=== PATIENT | male | born 1960 | race Caucasian/White ===

== ENCOUNTER → 2017-09-20 11:42 | Outpatient (CLI) | payer OTHER, SELFPAY ==
--- NOTE | 2017-09-20 | DI.US.S_ITS ---
PROCEDURE: US ABDOMEN COMPLETE INDICATIONS: Cirrhosis of liver TECHNIQUE: Real-time scanning was performed of the abdominal and retroperitoneal organs, with image documentation. COMPARISON: [facility], CT, ABDOMEN/PELVIS WITH CONTRAST, 09/21/2012, 9:33. [facility], US, ABDOMEN COMPLETE, 01/07/2015, 7:35. FINDINGS: Liver: Liver is diffusely increased in echogenicity. No focal hepatic abnormalities identified. Normal hepatic size. Gallbladder: Multiple gallstones present. No gallbladder wall thickening or pericholecystic fluid. Negative sonographic Staples sign. Biliary ducts: Intrahepatic bile ducts are non-dilated. Extrahepatic bile duct caliber measures 6.0 mm. Normal is 6-7 mm or less in diameter, or 10 mm or less post-cholecystectomy. Pancreas: Visualized portions of the pancreas are sonographically normal. Spleen: Spleen is normal in size and homogeneous in echotexture. Splenic calcifications redemonstrated. Kidneys: Kidneys are normal in size and echotexture. Right kidney measures 10.9 cm long; left kidney measures 12.7 cm long. No hydronephrosis or nephrolithiasis. No solid masses. Aorta: Visualized aorta is normal in caliber at less than 3 cm. Iliacs: Proximal common iliac arteries are normal in caliber at less than 2.5 cm. IVC: Intrahepatic inferior vena cava is patent. Miscellaneous: No free abdominal fluid. IMPRESSION: 1. Increased hepatic echogenicity noted likely related to fatty infiltration of the liver but other sources of hepatocellular disease cannot be excluded. Recommend clinical correlation. 2. Cholelithiasis. 3. Splenic calcifications redemonstrated. Dictated by: Roberto LINO Interpreted: Eamon Ram MD on 09/20/2017 at 14:04 Approved by: Eamon Ram M.D. on 09/20/2017 at 15:16
== END ==
PROVIDERS: Family Provider Internal Medicine; PCP Internal Medicine; Visit Provider Internal Medicine
DX: K74.69 Other cirrhosis of liver (principal); K80.20 Calculus of gallbladder without cholecystitis without obstruction
CPT/HCPCS: 76700

== ENCOUNTER 2018-02-02 12:51 | Day surgery (SDC) | payer OTHER, SELFPAY ==
[2018-02-02 14:00] VITALS: BP 151/84; PULSE 57; RESP 16; TEMP 36.7; O2SAT 95; BMI 36.3
[2018-02-02] MEDS: SODIUM CHLORIDE 0.9% 1,000 ML 42 ML IV (14:23)
--- NOTE | 2018-02-02 14:46 | PM.PREOP ---
Pre-operative Note Interval Note Pre-op Check: Yes History & Physical Reviewed by Physician and Yes Exam Performed Changes: No ASA Class (for procedural sedation): III
[2018-02-02 16:00] VITALS: BP 140/87; PULSE 57; RESP 16; TEMP 36.4; O2SAT 100
[2018-02-02 16:05] VITALS: BP 147/96; PULSE 58; RESP 18; O2SAT 98
[2018-02-02 16:10] VITALS: BP 159/93; PULSE 56; RESP 14; TEMP 36.6; O2SAT 97
--- NOTE | 2018-02-02 16:18 | PM.PREOP ---
Pre-operative Note Interval Note Pre-op Check: Yes History & Physical Reviewed by Physician, Yes Exam Performed and Yes History & Physical exam performed today by Physician Changes: No ASA Class (for procedural sedation): III
--- NOTE | 2018-02-02 16:19 | PM.OP.ENDO ---
Operative Date/Time/Diagnoses Date of procedure: 02/02/18 Time of procedure: 16:19 Pre-op diagnosis: See indication and findings Post-op diagnosis: same Procedure & Clinicians Study performed: EGD and colonoscopy Same procedure as scheduled: Yes Indications: Cirrhosis with need for screening for varices. In addition need for colorectal cancer screening. Procedure Notes Procedure in detail: Procedure in detail: After informed consent was obtained the patient was placed in left lateral decubitus position. The video upper scope was placed into the oropharynx and gently passed into the esophagus. The esophagus stomach and duodenum were carefully examined. On withdrawal, retroflexed view the GE junction was performed. The scope was removed. The patient tolerated the procedure well. The patient was then turned and the colonoscope was substituted. This was introduced into the rectum and slowly passed the cecum. Preparation was good. On slow withdrawal mucosa was carefully examined. The scope was removed. The patient tolerated the procedure well. Blood loss none Complications none Sedation mac per anesthesia Findings EGD 1. Normal esophagus 2. Possible mild portal gastropathy 3. Normal duodenal bulb and sweep Colonoscopy 1. Normal colonoscopy to cecum Patient will need repeat upper endoscopy in 1 year and follow-up colonoscopy in 10 years.
[2018-02-02 16:27] VITALS: BP 152/86; PULSE 53; RESP 16; TEMP 36.3; O2SAT 97
== END 2018-02-02 16:33 | disposition home or self-care (01) ==
PROVIDERS: Family Provider Internal Medicine; PCP Internal Medicine; Visit Provider Internal Medicine Gastroenterology
PROC: 0DJ08ZZ Inspection of Upper Intestinal Tract, Via Natural or Artificial Opening Endoscopic (ICD-10-PCS; CPT 43235; principal; 2018-02-02 14:30)
PROC: 0DJD8ZZ Inspection of Lower Intestinal Tract, Via Natural or Artificial Opening Endoscopic (ICD-10-PCS; CPT 45378; 2018-02-02 14:30)
DX: Z12.11 Encounter for screening for malignant neoplasm of colon (principal); K70.30 Alcoholic cirrhosis of liver without ascites; B19.20 Unspecified viral hepatitis C without hepatic coma; G47.33 Obstructive sleep apnea (adult) (pediatric); E66.9 Obesity, unspecified; F41.9 Anxiety disorder, unspecified; I10 Essential (primary) hypertension; F17.210 Nicotine dependence, cigarettes, uncomplicated
CPT/HCPCS: 43235; G0121; J2250; J2704; J3010

== ENCOUNTER 2018-02-25 07:02 | Emergency (ER) | payer OTHER, SELFPAY ==
[2018-02-25 07:13] VITALS: BP 137/89; PULSE 55; RESP 12; TEMP 36.4; O2SAT 100; BMI 35.4
[2018-02-25 07:52] LABS: Alanine Aminotransferase 65 IU/L (21-72); Albumin 4.9 g/dL (3.5-5.0); Albumin Globulin Ratio 1.6 (1.0-2.8); Alkaline Phosphatase 59 U/L (38-126); Aspartate Aminotransferase 56 IU/L (17-59); BUN Creatinine Ratio 22.9 (6-22); Bilirubin Total 0.8 mg/dL (0.2-1.3); Blood Urea Nitrogen 16 mg/dL (9-20); Calcium 9.8 mg/dL (8.4-10.2); Carbon Dioxide 26 mmol/L (22-32); Chloride 101 mmol/L (98-107); Estimated Glomerular Filt Rate > 60.0 mL/min (>60); Globulin 3.1 g/dL (1.7-4.1); Glucose 118 mg/dL (70-100); HEMOLYSIS 21 (0-50); Red Cell Distribution Width 12.4 % (11.6-14.8); Sodium 141 mmol/L (137-145)
--- NOTE | 2018-02-25 07:54 | DI.CT.S_ITS ---
PROCEDURE: CT HEAD/BRAIN WO CON INDICATIONS: dizzy TECHNIQUE: Noncontrast 4.5 mm thick angled axial sections acquired from the foramen magnum to the vertex, with coronal and sagittal reformats. For radiation dose reduction, the following was used: automated exposure control, adjustment of mA and/or kV according to patient size. COMPARISON: None. FINDINGS: Image quality: Excellent. CSF spaces: Basal cisterns are patent. No extra-axial fluid collections. The ventricles are symmetric in size and shape. Brain: No intracranial bleeds or masses. Probable anterior falx early calcification image 24 series 3 . There is also some apparent seen involving the posterior falx on the same slice. There is cerebral volume loss for age, with resultant ventricular and sulcal prominence. There are periventricular and deep white matter chronic small vessel ischemic changes. There is intracranial internal carotid artery atherosclerosis. Skull and face: Calvarium and visualized facial bones appear intact, without suspicious lesions. Sinuses: Visualized sinuses and mastoids are clear except for a small right maxillary mucous retention cyst or polyp. IMPRESSION: Overall, no definite acute intracranial abnormality. Subtle sub-5 mm hyperdense appearance along the anterior and posterior falx is probably early falx calcification although technically indeterminate in the absence of prior studies. If there is sufficient clinical suspicion, a repeat head CT in 6 hours could be performed. Dictated by: Andreas Puente M.D. on 02/25/2018 at 8:36 Approved by: Andreas Puente M.D. on 02/25/2018 at 8:42
[2018-02-25 08:05] LABS: Add Manual Diff / Slide Review NO; Basophils Percent Auto 0.8 % (0-2); Eosinophils Percent Auto 1.5 % (2-4); Hematocrit 48.3 % (41-53); Hemoglobin 17.3 g/dL (13.5-17.5); Lymphocytes Percent Auto 24.1 % (25-40); Mean Corpuscular HGB Conc 35.9 % (30-36); Mean Corpuscular Hemoglobin 33.9 PG (26-34); Mean Corpuscular Volume 94.6 fL (80-100); Monocytes Percent Auto 6.8 % (3-14); Neutrophils Absolute Auto 4700 /uL (3000-5900); Neutrophils Percent Auto 66.8 % (50-75); Platelet Count 188 X10^3/uL (150-400)
--- NOTE | 2018-02-25 08:07 | ED_ITS ---
HPI - Dizziness General Chief Complaint: Dizziness Stated Complaint: dizziness for 3 days, really bad now Time Seen by Provider: 02/25/18 07:27 Source: patient Mode of arrival: ambulatory Limitations: no limitations History of Present Illness HPI Narrative: Patient is a 57-year-old male who presents with dizziness. It has been ongoing for the last 3 days. He said he turned over in bed and immediately felt dizzy. He says he thought it was getting better yesterday however today it has persisted. He denies any nausea or vomiting. He denies blurry vision while sitting in the gurney now he does not feel bad. He mostly with turning his head in both directions and positional. He has no weakness numbness tingling or facial drooping. He is a diabetic and has not been on medications. He actually just saw his PCP last week. He said he was not taking his medications for the last few days he started taking them again and has not helped his dizziness. He denies chest pain shortness of breath heart palpitations MD complaint: dizziness Related Data Home Medications Medication Instructions Recorded Confirmed CHOLECALCIFEROL (VITAMIN D3) 400 iu PO Q DAY #0 09/23/11 CINNAMON BARK (Cinnamon) 500 mg PO Q DAY #0 09/23/11 CA PANTOTHENATE/FOLIC ACID/VIT 1 tab PO Q DAY #0 02/23/12 (MULTIVITAMIN) CPAP: CPAP/PAP Nasal Mask HS #0 02/23/12 Pyridoxine (PYRIDOXINE TIME 200 mg PO QDAY #0 02/23/12 RELEASE~) albuterol sulfate [Proventil HFA] 2 puff INH Q4HP #0 02/23/12 insulin glargine [Lantus U-100 20 unit SQ BID #10 ml 05/02/12 Insulin] OMEGA-3 FATTY ACIDS/FISH OIL (Fish 1,200 mg PO QDAY #0 05/09/12 Oil 1,200 MG Softgel) ondansetron HCl [Zofran] 8 mg PO TID PRN #0 05/09/12 trazodone 50 mg PO HS #0 05/09/12 CALCIUM CARBONATE (Calcium) 1 tab PO QDAY #0 05/17/12 lorazepam [Ativan] 0.5 mg PO HSP #0 07/22/12 Previous Rx's Medication Instructions Recorded salmeterol [Serevent Diskus] 1 inh INH Q12HP #3 02/23/12 insulin aspart U-100 [Novolog 0 - 15 unit SQ BLD #3 05/10/12 PenFill U-100 Insulin] atenolol 25 mg PO QDAY #30 11/07/12 pantoprazole [Protonix] 40 mg PO QDAYP #30 11/07/12 valsartan-hydrochlorothiazide 1 tab PO QDAY #30 11/07/12 [Diovan HCT] meclizine 12.5 mg PO TID PRN #20 tab 02/25/18 Allergies Allergy/AdvReac Type Severity Reaction Status Date / Time No Known Drug Allergies Allergy Verified 02/02/18 14:21 Review of Systems Review of Systems All systems reviewed & are unremarkable except as noted in HPI and below Constitutional Denies chills, Denies fever(s), Denies lethargy and Denies weakness ENT Ears, Nose, Mouth, and Throat: Reports dizziness Cardiovascular Denies syncope, Denies dyspnea and Denies dyspnea on exertion Respiratory Denies cough, Denies dyspnea, Denies dyspnea on exertion and Denies wheezing Gastrointestinal Gastrointestinal: Denies abdominal pain, Denies change in bowel habits, Denies diarrhea, Denies nausea and Denies vomiting Musculoskeletal Denies back pain, Denies muscle weakness, Denies numbness and Denies tingling Integumentary/Breasts Denies pruritus, Denies erythema, Denies rash and Denies wounds Neurologic Reports dizziness, Denies syncope, Denies numbness, Denies tingling and Denies weakness Allergic/Immunologic Denies wheezing [facility] Medical History Type 2 diabetes mellitus (Chronic) HTN (hypertension) (Chronic) Hyperlipidemia (Chronic) Anxiety disorder (Chronic) GERD (gastroesophageal reflux disease) (Chronic) Renal cell carcinoma (Inactive) DDD (degenerative disc disease), lumbosacral (Chronic) Obstructive sleep apnea of adult (Chronic) Excessive daytime sleepiness (Chronic) Primary insomnia (Chronic) Surgical History H/O partial nephrectomy (Inactive) History of lumbar spinal fusion (Chronic) Social History marital status: number of children: 3 household members: friend(s) lives independently: Yes occupational status: previously employed 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 RESPIRATORY: Breath sounds equal bilaterally, no wheezes rales or rhonchi. ABDOMEN: Soft, nontender. Normoactive bowel sounds all 4 quadrants. No guarding or rebound. EXTREMITIES: Normal range of motion, no clubbing or edema. Neurovascularly intact NEUROLOGICAL: Alert and oriented x4.Normal gait and speech. Cranial nerves II through XII grossly intact. Good [id number], good [id number], strength equal bilaterally, no dysarthria or aphasia, sensation in tact to soft touch bilaterally, no visual changes, no facial droop SKIN: Warm, dry, no laceration, no petechiae, no rashes or lesions. Scores NIH Stroke Scale Level of Conciousness: Alert, keenly responsive Ask month/age: Answers both questions correctly. Open/close eyes, close hand: Performs both tasks correctly Best gaze horizontal: Normal Visual barcenas: No visual loss Facial palsy: Normal symetrical movement Left arm drift: No drift for full 10 sec Right arm drift: No drift for full 10 sec Left leg drift: No drift for full 10 sec Right leg drift: No drift for full 10 sec Limb ataxia: Absent Sensory on face/arms/legs: Normal, no sensory loss Best language: No aphasia, normal Dysarthria: Normal Extinction or inattention: No abnormality Total NIH Stroke scale score: 0 Course Orders Ordered: ED Orders 02/25/18 07:31 Complete Blood Count AUTO DIFF Stat Comprehensive Metabolic Panel Stat 02/25/18 07:54 CT head/brain wo con Stat Discontinued Medications Sodium Chloride (Normal Saline 0.9%) 1,000 mls @ 1,000 mls/hr IV CONT ARIANA Last Infusion: 02/25/18 09:08 Dose: 0 mls/hr Admin: 02/25/18 08:10 Dose: 1,000 mls/hr Meclizine HCl (Antivert) 25 mg PO NOW ONE Stop: 02/25/18 07:35 Last Admin: 02/25/18 08:10 Dose: 25 mg Vital Signs - 8 hr 02/25/18 07:13 02/25/18 09:21 Temperature 97.5 F L Pulse Rate 55 L 52 L Respiratory Rate 12 15 Blood Pressure 137/89 154/84 H Pulse Oximetry 100 97 MDM - Dizziness Lab Data Attestation: I reviewed the patient's lab results. Result diagrams: 02/25/18 07:31 02/25/18 07:31 Lab Results 02/25/18 02/25/18 Range/Units 07:31 07:31 WBC 7.0 (4.5-11.0) X10^3/uL RBC 5.10 (4.5-5.9) X10^6/uL Hgb 17.3 (13.5-17.5) g/dL Hct 48.3 (41-53) % MCV 94.6 (80-100) fL MCH 33.9 (26-34) PG MCHC 35.9 (30-36) % RDW 12.4 (11.6-14.8) % Plt Count 188 (150-400) X10^3/uL Neut % (Auto) 66.8 (50-75) % Lymph % (Auto) 24.1 L (25-40) % Amador % (Auto) 6.8 (3-14) % Eos % (Auto) 1.5 L (2-4) % Baso % (Auto) 0.8 (0-2) % Neut # (Auto) 4700 (5631-0889) /uL Sodium 141 (137-145) mmol/L Potassium 4.0 (3.4-5.1) mmol/L Chloride 101 (98-107) mmol/L Carbon Dioxide 26 (22-32) mmol/L BUN 16 (9-20) mg/dL Creatinine 0.70 (0.66-1.25) mg/dL Estimated GFR > 60.0 (>60) mL/min BUN/Creatinine Ratio 22.9 H (6-22) Glucose 118 H (70-100) mg/dL Calcium 9.8 (8.4-10.2) mg/dL Total Bilirubin 0.8 (0.2-1.3) mg/dL AST 56 (17-59) IU/L ALT 65 (21-72) IU/L Alkaline Phosphatase 59 (38-126) U/L Total Protein 8.0 (6.3-8.2) g/dL Albumin 4.9 (3.5-5.0) g/dL Globulin 3.1 (1.7-4.1) g/dL Albumin/Globulin Ratio 1.6 (1.0-2.8) Point of Care Testing Glucose POC [address] scan - head: Radiologist's impression: PROCEDURE: CT HEAD/BRAIN WO CON INDICATIONS: dizzy TECHNIQUE: Noncontrast 4.5 mm thick angled axial sections acquired from the foramen magnum to the vertex, with coronal and sagittal reformats. For radiation dose reduction, the following was used: automated exposure control, adjustment of mA and/or kV according to patient size. COMPARISON: None. FINDINGS: Image quality: Excellent. CSF spaces: Basal cisterns are patent. No extra-axial fluid collections. The ventricles are symmetric in size and shape. Brain: No intracranial bleeds or masses. Probable anterior falx early calcification image 24 series 3 . There is also some apparent seen involving the posterior falx on the same slice. There is cerebral volume loss for age, with resultant ventricular and sulcal prominence. There are periventricular and deep white matter chronic small vessel ischemic changes. There is intracranial internal carotid artery atherosclerosis. Skull and face: Calvarium and visualized facial bones appear intact, without suspicious lesions. Sinuses: Visualized sinuses and mastoids are clear except for a small right maxillary mucous retention cyst or polyp. IMPRESSION: Overall, no definite acute intracranial abnormality. Subtle sub-5 mm hyperdense appearance along the anterior and posterior falx is probably early falx calcification although technically indeterminate in the absence of prior studies. If there is sufficient clinical suspicion, a repeat head CT in 6 hours could be performed. Dictated by: Andreas Puente M.D. on 02/25/2018 at 8:36 ECG Data Attestation: I personally reviewed and interpreted this ECG as follows: Prior ECG tracings: not available for review Interpretation: Normal sinus rhythm rate [address] changes Q-waves noted in lead 3 no priors to compare MDM Narrative Medical decision making narrative: The patient overall appears nontoxic he says he feels much better. He denies any headache. CT has questionable calcification versus hyperdense appearance. I think this is more calcification. Patient is completely asymptomatic and symptoms have been ongoing for the last 3 days. If he were to have acute bleeding it would show up on CT at this time. It has been more than 12 hr. Discharge Plan Departure Patient Disposition: Home Clinical Impression: Benign paroxysmal positional vertigo Discharge Date/Time: 02/25/18 09:22 Interventions: ED Discharge Assessment Last Done: 02/25/18 09:21 Instructions: DI for Benign Paroxysmal Positional Vertigo Activity Restrictions/Additional Instructions: *You have been diagnosed with benign paroxysmal positional vertigo *What to do: They should start improving. *Continue to take medications as directed Meclizine every 8 hr if needed for dizziness *Follow up with your primary care provider in 2-3 days *Return to ER if you should have worsening dizziness balance problems, vomiting any new, worsening or concerning symptoms Prescriptions: New meclizine 25 mg tablet 12.5 mg PO TID PRN (Reason: dizziness) Qty: 20 RF: 0 No Action CINNAMON BARK (Cinnamon) 500 mg PO Q DAY Qty: 0 RF: 0 CHOLECALCIFEROL (VITAMIN D3) 400 iu PO Q DAY Qty: 0 RF: 0 CA PANTOTHENATE/FOLIC ACID/VIT (MULTIVITAMIN) 1 tab PO Q DAY Qty: 0 RF: 0 CPAP: CPAP/PAP Nasal Mask HS Qty: 0 RF: 0 albuterol sulfate [Proventil HFA] 90 MCG/PUFF HFA aerosol inhaler 2 puff INH Q4HP Qty: 0 RF: 0 Pyridoxine (PYRIDOXINE TIME RELEASE~) 200 mg PO QDAY Qty: 0 RF: 0 salmeterol [Serevent Diskus] 50 MCG blister with device 1 inh INH Q12HP Qty: 3 RF: 1 insulin glargine [Lantus U-100 Insulin] 100 UNIT/1 ML solution 20 unit SQ BID Qty: 10 RF: 0 trazodone 50 MG tablet 50 mg PO HS Qty: 0 RF: 0 OMEGA-3 FATTY ACIDS/FISH OIL (Fish Oil 1,200 MG Softgel) 1,200 mg PO QDAY Qty: 0 RF: 0 ondansetron HCl [Zofran] 8 MG tablet 8 mg PO TID PRN Qty: 0 RF: 0 insulin aspart U-100 [Novolog PenFill U-100 Insulin] 100 UNIT/1 ML cartridge 0 - 15 unit SQ BLD Qty: 3 RF: 1 CALCIUM CARBONATE (Calcium) 1 tab PO QDAY Qty: 0 RF: 0 lorazepam [Ativan] 1 MG tablet 0.5 mg PO HSP Qty: 0 RF: 0 atenolol 25 MG tablet 25 mg PO QDAY Qty: 30 RF: 0 pantoprazole [Protonix] 40 MG tablet,delayed release (DR/EC) 40 mg PO QDAYP Qty: 30 RF: 0 valsartan-hydrochlorothiazide [Diovan HCT] 160 MG/25 MG tablet 1 tab PO QDAY Qty: 30 RF: 0 Referrals: Nahid Coyle MD [Primary Care Provider] -
[2018-02-25] MEDS: MECLIZINE HCL 12.5 MG TABLET 25 MG PO (08:10)
[2018-02-25] MEDS: SODIUM CHLORIDE 0.9% 1,000 ML 1000 ML IV (08:10)
--- NOTE | 2018-02-25 09:17 | PC.NURSE ---
Patient ambulated well around the ER, Only a slight C/O a little dizzy.
[2018-02-25 09:21] VITALS: BP 154/84; PULSE 52; RESP 15; O2SAT 97
--- NOTE | 2018-02-26 15:28 | PC.NURSE ---
call back, no answer.
== END 2018-02-25 09:22 | disposition home or self-care (01) ==
PROVIDERS: Emergency Provider Emergency Medicine; Family Provider Internal Medicine; PCP Internal Medicine
DX: H81.10 Benign paroxysmal vertigo, unspecified ear (principal)
CPT/HCPCS: 36591; 70450; 80053; 85025; 93005; 96360; 99283; 99285

== ENCOUNTER → 2020-04-18 15:11 | Outpatient (ROUT) | payer OTHER, SELFPAY ==
[2020-04-18 15:46] LABS: Aspartate Aminotransferase 96 IU/L (17-59); Blood Urea Nitrogen 16 mg/dL (9-20); Calcium 9.8 mg/dL (8.4-10.2); Carbon Dioxide 28 mmol/L (22-32); Chloride 99 mmol/L (98-107); Cholesterol 188 mg/dL (140-199); Estimated Glomerular Filt Rate > 60.0 mL/min (>60); Glucose 174 mg/dL (80-110); HDL Cholesterol 51 mg/dL (40-60); HEMOLYSIS < 15 (0-50); LDL Cholesterol Calculated 83 mg/dL (<100); Potassium 4.8 mmol/L (3.4-5.1); Sodium 138 mmol/L (137-145); Triglycerides 272 mg/dL (35-150)
== END ==
PROVIDERS: Family Provider Internal Medicine; PCP Internal Medicine; Visit Provider Internal Medicine
DX: I10 Essential (primary) hypertension (principal); E78.2 Mixed hyperlipidemia
CPT/HCPCS: 80048; 80061; 84450

== ENCOUNTER → 2020-11-20 09:08 | Outpatient (CLI) | payer OTHER, SELFPAY ==
--- NOTE | 2020-11-20 09:10 | DI.RAD.S_ITS ---
PROCEDURE: XR HIP W PEL IF DONE LT 2V INDICATIONS: LT HIP PAIN/POST FALL TECHNIQUE: AP pelvis with lateral view(s) of the left hip(s). COMPARISON: None. FINDINGS: Bones: Subtle irregularity at the left femoral neck with linear lucency. No dislocations. No avascular necrosis of the left femoral head. Mild bilateral hip joint space narrowing. Pelvic ring appears intact. No suspicious bony lesions. Pedicle screws right L5-S1. Soft tissues: The visualized bowel gas pattern is normal. No suspicious soft tissue calcifications. IMPRESSION: Possible nondisplaced left femoral neck fracture. This could be further evaluated with CT or MRI of the left hip. Dictated by: Vazquez Walls M.D. on 11/20/2020 at 9:45 Approved by: Vazquez Walls M.D. on 11/20/2020 at 9:51
== END ==
PROVIDERS: Family Provider Internal Medicine; PCP Internal Medicine; Referring Provider Internal Medicine; Visit Provider Internal Medicine
DX: S70.02XA Contusion of left hip, initial encounter (principal); W19.XXXA Unspecified fall, initial encounter
CPT/HCPCS: 73502

== ENCOUNTER → 2020-11-22 14:11 | Outpatient (CLI) | payer OTHER, SELFPAY ==
--- NOTE | 2020-11-22 14:13 | DI.CT.S_ITS ---
PROCEDURE: CT PEL WO CON INDICATIONS: Contusion of left hip, initial encounter TECHNIQUE: Noncontrast 3 mm axial sections acquired through the bony pelvis, with coronal and sagittal reformatting. COMPARISON: [facility], CT, ABDOMEN/PELVIS WITH CONTRAST, 09/21/2012, 9:33. [facility], CR, XR HIP W PEL IF DONE LT 2V, 11/20/2020, 9:09. FINDINGS: Image quality: Excellent. Bones: There is no definitively identified fracture or dislocation. Degenerative changes are present within the lower lumbar spine as well as posterior right davey fusion at L5-S1 Soft tissues: Visualized soft tissues within the lower abdomen and pelvis demonstrate colonic diverticulosis. Visualized portions of the bowel loops are nonobstructive. Bladder is distended. IMPRESSION: No definitive fracture or dislocation. If pain or concern persists, MRI for occult injury is highly recommended. Dictated by: Tawanna Carmichael M.D. on 11/22/2020 at 14:56 Approved by: Tawanna Carmichael M.D. on 11/22/2020 at 15:02
== END ==
PROVIDERS: Family Provider Internal Medicine; PCP Internal Medicine; Referring Provider Internal Medicine; Visit Provider Internal Medicine
DX: S70.02XA Contusion of left hip, initial encounter (principal); X58.XXXA Exposure to other specified factors, initial encounter
CPT/HCPCS: 72192

== ENCOUNTER 2020-11-30 13:25 | Emergency (ER) | payer OTHER, SELFPAY ==
[2020-11-30] VITALS (10 sets, daily range): BP systolic 161–198; BP diastolic 90–107; PULSE 63–86; RESP 15–22; O2SAT 95–98; BMI 36.9
--- NOTE | 2020-11-30 13:48 | DI.CT.S_ITS ---
PROCEDURE: CT HEAD/BRAIN WO CON INDICATIONS: Headache TECHNIQUE: Noncontrast 4.5 mm thick angled axial sections acquired from the foramen magnum to the vertex, with coronal and sagittal reformats. For radiation dose reduction, the following was used: automated exposure control, adjustment of mA and/or kV according to patient size. COMPARISON: [facility], CT, CT HEAD/BRAIN WO CON, 02/25/2018, 7:53. FINDINGS: Image quality: Excellent. CSF spaces: Basal cisterns are patent. No extra-axial fluid collections. The ventricles are symmetric in size and shape. Brain: No intracranial bleeds or masses. There is cerebral volume loss for age, with resultant ventricular and sulcal prominence. There are periventricular and deep white matter chronic small vessel ischemic changes. There is intracranial internal carotid artery atherosclerosis. Skull and face: Calvarium and visualized facial bones appear intact, without suspicious lesions. Sinuses: Visualized sinuses and mastoids are clear. IMPRESSION: No acute intracranial abnormality. Scattered tiny calcifications in the subarachnoid space overlying the convexities, new from 02/25/2018, consistent with neurocysticercosis. Dictated by: Rohan Lazar M.D. on 11/30/2020 at 14:04 Approved by: Rohan Lazar M.D. on 11/30/2020 at 14:06
[2020-11-30] MEDS: PROPARACAINE 0.5% OPHTH SOL 1 DROPS EYE-LEFT (14:04)
--- NOTE | 2020-11-30 15:06 | ED.HA ---
HPI - Headache <Roberto Tse PA-C - Last Filed: 12/01/20 12:36> General Chief Complaint: Headache Stated Complaint: Pressure in your head Time Seen by Provider: 11/30/20 13:48 Mode of arrival: Ambulatory Limitations: no limitations History of Present Illness HPI Narrative: Partha presents today with chief complaint of acute left-sided periorbital headache and eye pain that started abruptly earlier this afternoon while he was cutting some wood with a chop saw. He reports that he initially had left eye pain and pain with movement to the left of his left eye. He reported blurry vision initially but that has now improved. He reports that he still has significant discomfort here in the emergency department. He denies any significant dizziness, confusion, speech changes, numbness or tingling, neck pain, chest or any other acute concerns or complaints at this time. Related Data Home Medications Medication Instructions Recorded Confirmed CHOLECALCIFEROL (VITAMIN D3) 400 iu PO Q DAY #0 09/23/11 CINNAMON BARK (Cinnamon) 500 mg PO Q DAY #0 09/23/11 CA PANTOTHENATE/FOLIC ACID/VIT 1 tab PO Q DAY #0 02/23/12 (MULTIVITAMIN) CPAP: CPAP/PAP Nasal Mask HS #0 02/23/12 Pyridoxine (PYRIDOXINE TIME 200 mg PO QDAY #0 02/23/12 RELEASE~) albuterol sulfate 90 mcg/actuation 2 puff INH Q4HP #0 02/23/12 aerosol inhaler (Proventil HFA) insulin glargine 100 unit/mL 20 unit SQ BID #10 ml 05/02/12 subcutaneous solution (Lantus U-100 Insulin) OMEGA-3 FATTY ACIDS/FISH OIL (Fish 1,200 mg PO QDAY #0 05/09/12 Oil 1,200 MG Softgel) ondansetron HCl 8 mg tablet 8 mg PO TID PRN #0 05/09/12 (Zofran) trazodone 50 mg tablet 50 mg PO HS #0 05/09/12 CALCIUM CARBONATE (Calcium) 1 tab PO QDAY #0 05/17/12 lorazepam 1 mg tablet (Ativan) 0.5 mg PO HSP #0 07/22/12 Previous Rx's Medication Instructions Recorded salmeterol 50 mcg/dose blister 1 inh INH Q12HP #3 02/23/12 powder for inhalation (Serevent Diskus) insulin aspart U-100 100 unit/mL 0 - 15 unit SQ BLD #3 05/10/12 subcutaneous cartridge (Novolog PenFill U-100 Insulin aspart) atenolol 25 mg tablet 25 mg PO QDAY #30 11/07/12 pantoprazole 40 mg tablet,delayed 40 mg PO QDAYP #30 11/07/12 release (Protonix) valsartan 160 1 tab PO QDAY #30 11/07/12 mg-hydrochlorothiazide 25 mg tablet (Diovan HCT) meclizine 25 mg tablet 12.5 mg PO TID PRN #20 tab 02/25/18 Allergies Allergy/AdvReac Type Severity Reaction Status Date / Time No Known Drug Allergies Allergy Verified 11/30/20 13:58 Review of Systems <Roberto Tse PA-C - Last Filed: 12/01/20 12:36> Review of Systems Narrative: As per HPI Patient History <Roberto Tse PA-C - Last Filed: 12/01/20 12:36> Medical History (Updated 11/30/20 @ 16:13 by Roberto Tse PA-C) Anxiety disorder DDD (degenerative disc disease), lumbosacral Excessive daytime sleepiness GERD (gastroesophageal reflux disease) HTN (hypertension) Hyperlipidemia Obstructive sleep apnea of adult Primary insomnia Renal cell carcinoma Type 2 diabetes mellitus Surgical History H/O partial nephrectomy History of lumbar spinal fusion Social History marital status: number of children: 3 household members: friend(s) lives independently: Yes occupational status: previously employed 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 Smoking Status: Former smoker alcohol intake: former substance use type: does not use Smoking Status: Former smoker alcohol intake frequency: 3 or more drinks per day Substance Use Type: does not use Exam <Roberto Tse PA-C - Last Filed: 12/01/20 12:36> Narrative Exam Narrative: Exam Narrative: Const General: cooperative, healthy appearing, comfortable, no acute distress, well developed and well groomed Nutritional Appearance: average body habitus Orientation: alert and oriented x3 HENMT Head: normal to inspection and atraumatic Ears: hearing grossly normal bilaterally Nose: external nose normal and nares normal Eyes: Conjunctiva grossly normal bilaterally, clear discharge of left eye, no foreign bodies visualized upper lower eyelids. No periorbital erythema or swelling noted. PERRLA, EOMI, no fluorescein uptake noted on Wood's lamp evaluation. No significant soft tissue tenderness or bony tenderness. Face and sinus: normal facial exam Neck Neck: normal visual inspection and supple Resp Effort & Inspection: normal respiratory effort, able to speak in complete sentences, no audible wheezes, not labored, no nasal flaring and no respiratory distress Neuro General: alert, oriented x3, gait normal, tone normal and moves all extremities, cranial nerves 2-12 grossly intact, coordination Cognition: normal cognition Speech: speech normal Gait: normal gait Psych Appearance: grossly normal and well kempt Mental Status: mental status grossly normal Speech and Movement: speech and movement normal Mood: congruent mood Affect: normal affect Initial Vital Signs Initial Vital Signs: Vital Signs Pulse Rate 86 11/30/20 13:58 Respiratory Rate 18 11/30/20 13:58 Blood Pressure 184/106 H 11/30/20 13:58 Pulse Oximetry 96 11/30/20 13:58 <Samantha Cortez DO - Last Filed: 12/04/20 08:59> Initial Vital Signs Initial Vital Signs: Vital Signs Pulse Rate 86 11/30/20 13:58 Respiratory Rate 18 11/30/20 13:58 Blood Pressure 184/106 H 11/30/20 13:58 Pulse Oximetry 96 11/30/20 13:58 Course <Roberto Tse PA-C - Last Filed: 12/01/20 12:36> Orders Ordered: Discontinued Medications Fluorescein Sodium (Fluorescein 1 Mg Strip) 1 mg EYE-LEFT NOW ONE Stop: 11/30/20 15:26 Last Admin: 11/30/20 15:29 Dose: 1 mg Documented by: LALA Proparacaine HCl (Proparacaine 0.5% Ophth Jamila) 1 drops EYE-LEFT NOW ONE Stop: 11/30/20 14:00 Last Admin: 11/30/20 14:04 Dose: 1 drop Documented by: LALA Vital Signs Vital signs: Vital Signs - 8 hr 11/30/20 13:58 11/30/20 14:29 11/30/20 14:30 Pulse Rate 86 79 Respiratory Rate 18 20 Blood Pressure 184/106 H 173/107 H 169/107 H Pulse Oximetry 96 96 11/30/20 15:00 11/30/20 15:23 11/30/20 15:25 Pulse Rate 80 78 74 Respiratory Rate 22 17 17 Blood Pressure 161/95 H 184/101 H 173/105 H Pulse Oximetry 95 96 96 11/30/20 15:26 Pulse Rate 74 Respiratory Rate 18 Blood Pressure 180/104 H Pulse Oximetry 97 <Samantha Cortez DO - Last Filed: 12/04/20 08:59> Orders Ordered: Discontinued Medications Fluorescein Sodium (Fluorescein 1 Mg Strip) 1 mg EYE-LEFT NOW ONE Stop: 11/30/20 15:26 Last Admin: 11/30/20 15:29 Dose: 1 mg Documented by: LALA Proparacaine HCl (Proparacaine 0.5% Ophth Jamila) 1 drops EYE-LEFT NOW ONE Stop: 11/30/20 14:00 Last Admin: 11/30/20 14:04 Dose: 1 drop Documented by: LALA Vital Signs Vital signs: Vital Signs - 8 hr 11/30/20 13:58 11/30/20 14:29 11/30/20 14:30 Pulse Rate 86 79 Respiratory Rate 18 20 Blood Pressure 184/106 H 173/107 H 169/107 H Pulse Oximetry 96 96 11/30/20 15:00 11/30/20 15:23 11/30/20 15:25 Pulse Rate 80 78 74 Respiratory Rate 22 17 17 Blood Pressure 161/95 H 184/101 H 173/105 H Pulse Oximetry 95 96 96 11/30/20 15:26 Pulse Rate 74 Respiratory Rate 18 Blood Pressure 180/104 H Pulse Oximetry 97 MDM - Headache <Roberto Tse PA-C - Last Filed: 12/01/20 12:36> Lab Data Labs: Point of Care Testing Glucose POC 252 MDM Narrative Medical decision making narrative: Patient is well-appearing here in the emergency department at this time. He has mild left-sided periorbital headache. Eye exam is essentially normal. Given his history of cutting wood at the time of his pain, corneal abrasion or ocular foreign body was consider. Physical examination does not suggest that this time. Acute angle closure glaucoma was also considered. He has normal visual acuity and no significant physical exam symptoms to suggest this. Stroke was considered but he is neurologically intact at this time. He reports that he is under a lot of stress as his daughter is visiting on Wednesday. Given his ipsilateral lacrimation, cluster headache is considered. His symptoms have improved here in the emergency department. Strict ER return precautions were discussed with the patient. Patient verbalizes understanding and agrees to plan and has no further concerns at this time. Thank you A jhpov-[id number] system was used with the dictation of this note. Please disregard any spelling or grammatical errors. <Samantha Cortez, DO - Last Filed: 12/04/20 08:59> Lab Data Labs: Point of Care Testing Glucose POC 252 Discharge Plan Departure Patient Disposition: Home Clinical Impression: Acute headache Qualifiers: Headache type: unspecified Intractability: not intractable Qualified Code(s): R51.9 - Headache, unspecified Instructions: DI for Migraine, DI for Cluster Headache Activity Restrictions/Additional Instructions: It was very nice to meet you this afternoon. Please treat this as you would any other headache with acetaminophen or ibuprofen as needed. Excedrin migraine can also be used and is a good uesf-hss-jrcstif medication. Return precautions include acutely worsening headache, vision changes, eye pain, confusion, speech changes or any other acute concerns or complaints. Thank you Roberto Tse PA-C Prescriptions: No Action CINNAMON BARK (Cinnamon) 500 mg PO Q DAY Qty: 0 RF: 0 CHOLECALCIFEROL (VITAMIN D3) 400 iu PO Q DAY Qty: 0 RF: 0 CA PANTOTHENATE/FOLIC ACID/VIT (MULTIVITAMIN) 1 tab PO Q DAY Qty: 0 RF: 0 CPAP: CPAP/PAP Nasal Mask HS Qty: 0 RF: 0 albuterol sulfate [Proventil HFA] 90 MCG/PUFF HFA aerosol inhaler 2 puff INH Q4HP Qty: 0 RF: 0 Pyridoxine (PYRIDOXINE TIME RELEASE~) 200 mg PO QDAY Qty: 0 RF: 0 salmeterol [Serevent Diskus] 50 MCG blister with device 1 inh INH Q12HP Qty: 3 RF: 1 insulin glargine [Lantus U-100 Insulin] 100 UNIT/1 ML solution 20 unit SQ BID Qty: 10 RF: 0 trazodone 50 MG tablet 50 mg PO HS Qty: 0 RF: 0 OMEGA-3 FATTY ACIDS/FISH OIL (Fish Oil 1,200 MG Softgel) 1,200 mg PO QDAY Qty: 0 RF: 0 ondansetron HCl [Zofran] 8 MG tablet 8 mg PO TID PRN Qty: 0 RF: 0 insulin aspart U-100 [Novolog PenFill U-100 Insulin] 100 UNIT/1 ML cartridge 0 - 15 unit SQ BLD Qty: 3 RF: 1 CALCIUM CARBONATE (Calcium) 1 tab PO QDAY Qty: 0 RF: 0 lorazepam [Ativan] 1 MG tablet 0.5 mg PO HSP Qty: 0 RF: 0 atenolol 25 MG tablet 25 mg PO QDAY Qty: 30 RF: 0 pantoprazole [Protonix] 40 MG tablet,delayed release (DR/EC) 40 mg PO QDAYP Qty: 30 RF: 0 valsartan-hydrochlorothiazide [Diovan HCT] 160 MG/25 MG tablet 1 tab PO QDAY Qty: 30 RF: 0 meclizine 25 mg tablet 12.5 mg PO TID PRN (Reason: dizziness) Qty: 20 RF: 0 Referrals: Nahid Coyle MD [Primary Care Provider] - <Samantha Cortez DO - Last Filed: 12/04/20 08:59> Cosign ED Attending Cosamberature Attestation: I was immediately available in the department for consultation. Documentation has been reviewed. I do not see IOPs documented but notes acute angle closure glaucoma considered.
[2020-11-30] MEDS: FLUORESCEIN 1 MG STRIP EYE-LEFT (15:29)
== END 2020-11-30 16:18 | disposition home or self-care (01) ==
PROVIDERS: Emergency Provider Physician Assistant; Family Provider Internal Medicine; PCP Internal Medicine
DX: R51.9 Headache, unspecified (principal); H53.8 Other visual disturbances
CPT/HCPCS: 70450; 82962; 99284

== ENCOUNTER 2021-02-04 11:28 | Emergency (ER) | payer OTHER, SELFPAY ==
[2021-02-04] VITALS (12 sets, daily range): BP systolic 159–192; BP diastolic 89–98; PULSE 66–84; RESP 19; TEMP 36.6; O2SAT 94–97; BMI 36.9
--- NOTE | 2021-02-04 16:03 | DI.CT.S_ITS ---
PROCEDURE: CT HEAD/BRAIN WO CON INDICATIONS: Vision loss TECHNIQUE: Noncontrast 4.5 mm thick angled axial sections acquired from the foramen magnum to the vertex, with coronal and sagittal reformats. For radiation dose reduction, the following was used: automated exposure control, adjustment of mA and/or kV according to patient size. COMPARISON: [facility], CT, CT ANGIO HEAD AND NECK, 02/04/2021, 16:38. [facility], CT, CT HEAD/BRAIN WO CON, 02/25/2018, 7:53. [facility], CT, CT HEAD/BRAIN WO CON, 11/30/2020, 13:52. FINDINGS: Image quality: Excellent. CSF spaces: Basal cisterns are patent. No extra-axial fluid collections. The ventricles are symmetric in size and shape. Brain: Size of parenchymal calcification can be seen, which are largely seen along the srivastava-white junction within the left cerebral hemisphere. No intracranial bleeds or masses. There is cerebral volume loss for age, with resultant ventricular and sulcal prominence. There are periventricular and deep white matter chronic small vessel ischemic changes. There is intracranial internal carotid artery atherosclerosis. Skull and face: Calvarium and visualized facial bones appear intact, without suspicious lesions. Sinuses: Visualized sinuses and mastoids are clear. IMPRESSION: No acute intracranial hemorrhage is seen. No acute intracranial process is seen. Stable foci of parenchymal calcification can be seen. These are nonspecific, although please consider prior infection, including there is focal neurocysticercosis. Dictated by: Ethan Bey M.D. on 02/04/2021 at 16:11 Approved by: Ethan Bey M.D. on 02/04/2021 at 16:13
--- NOTE | 2021-02-04 16:04 | DI.CT.S_ITS ---
PROCEDURE: CT ANGIO HEAD AND NECK INDICATIONS: vision loss TECHNIQUE: Noncontrast images were performed earlier in the day and not repeated. After the administration of intravenous contrast, 1 mm thick sections acquired from the aortic arch through the [place] of [place]. Post-contrast 4.5 mm thick sections then re-acquired from the foramen magnum to the vertex. 3-dimensional ntcjgzx-eiqhrijaf-mgxnrfewog (MIP) and/or volume rendering reformats were acquired of the central intracranial vasculature and neck separately. COMPARISON: [facility], CT, CT HEAD/BRAIN WO CON, 02/25/2018, 7:53. [facility], CT, CT HEAD/BRAIN WO CON, 02/04/2021, 16:38. [facility], CT, CT HEAD/BRAIN WO CON, 11/30/2020, 13:52. FINDINGS: Image quality: Excellent. BRAIN: CSF spaces: Ventricles are normal in size and shape. Basal cisterns are patent. No extra-axial fluid collections. Brain: No midline shift. No intracranial bleeds or masses. Ramsey-white matter interface appears intact. Skull and face: Calvarium and facial bones appear intact, without suspicious lesions. Orbits appear normal. Sinuses: Sinuses and mastoids are clear. HEAD CT ANGIOGRAPHY: Anterior circulation: Intracranial internal carotid arteries are normal in size and flow. There is a diminutive right A1 segment, with a corresponding robust left A1 segment. This is considered to be a normal developmental variant of the [place] of [place], of typically no clinical consequence. The flow within the paired anterior cerebral arteries is otherwise normal and symmetric. The flow within the middle cerebral arteries is normal and symmetric. The anterior communicating artery is seen. No aneurysms are seen. Posterior circulation: Visualized portions of the vertebral arteries demonstrate normal caliber, and join to form a normal appearing basilar artery. There is a prominent right posterior communicating artery seen, with an accompanying diminutive right P1 segment. This is attributed to a type origin of the right posterior cerebral artery, which is considered to be a normal developmental variant of typically no clinical consequence. Flow within the posterior cerebral arteries is normal and symmetric. No aneurysms are seen. NECK CT ANGIOGRAPHY: Carotid system: The great vessels demonstrate a conventional anatomy as they arise from the aortic arch. The origins of the common carotid arteries appear patent. The common carotid arteries demonstrate normal caliber and courses. The bifurcation regions demonstrate atherosclerotic irregularity and calcification. There is approximately 70% narrowing seen involving the left proximal internal carotid artery. Approximately 20% narrowing can be seen involving the right proximal internal carotid artery. The more distal internal carotid arteries demonstrate normal course and caliber. Posterior circulation: The origins of the vertebral arteries both appear widely patent. Incidental note is made of a direct origin of the left vertebral artery from the aortic arch. The more superior extracranial portions of both vertebral arteries also demonstrate normal courses and calibers. They join to form a normal appearing basilar artery. Soft tissues: Visualized neck soft tissues demonstrate no suspicious abnormalities. Bones: No suspicious bony lesions. Visualized cervical spine appears normally aligned. Moderate cervical spine degenerative changes are seen. IMPRESSION: No significant intracranial arterial abnormality is seen. There is approximately 70% narrowing seen involving the left proximal internal carotid artery and approximately 20% narrowing involving the right proximal internal carotid artery. No abnormal enhancement is seen. Incidental note is made of: Direct origin of the left vertebral artery from the aortic arch. [id number] developmental anomalies. Moderate cervical spine degenerative change Any quantitative measurements of stenosis were performed using NASCET criteria. Dictated by: Ethan Bey M.D. on 02/04/2021 at 16:07 Approved by: Ethan Bey M.D. on 02/04/2021 at 16:11
[2021-02-04 16:12] LABS: Add Manual Diff / Slide Review NO; Basophils Absolute Auto 100 /uL (0-100); Basophils Percent Auto 0.8 % (0-2); Eosinophils Absolute Auto 100 /uL (0-450); Eosinophils Percent Auto 2.1 % (2-4); Hematocrit 42.9 % (41-53); Hemoglobin 14.6 g/dL (13.5-17.5); Lymphocytes Absolute Auto 2000 /uL (1100-4500); Lymphocytes Percent Auto 28.4 % (25-40); Mean Corpuscular Hemoglobin 30.1 PG (26-34); Mean Corpuscular Volume 88.6 fL (80-100); Monocytes Absolute Auto 500 /uL (0-900); Neutrophils Absolute Auto 4400 /uL (1500-7000); Neutrophils Percent Auto 61.7 % (50-75); Platelet Count 222 X10^3/uL (150-400); Red Blood Cell Count 4.85 X10^6/uL (4.5-5.9); Red Cell Distribution Width 13.5 % (11.6-14.8)
[2021-02-04 16:14] LABS: INR 1.1 (0.9-1.3); Prothrombin Time 12.7 SECONDS (10.1-12.7)
--- NOTE | 2021-02-04 16:14 | DI.RAD.S_ITS ---
PROCEDURE: XR CHEST 2V INDICATIONS: vision loss TECHNIQUE: 2 views of the chest were acquired. COMPARISON: [facility], CT, CT HEAD/BRAIN WO CON, 02/04/2021, 16:38. [facility], CT, CT ANGIO HEAD AND NECK, 02/04/2021, 16:38. [facility], CR, CHEST 1 VIEW, 05/22/2012, 8:21. FINDINGS: Surgical changes and devices: None. Lungs and pleura: An incomplete inspiratory result is noted, causing a crowded appearance to the lung markings. No focal infiltrates are seen. No pneumothorax or significant pleural effusions are seen. Mediastinum: Mediastinal contours are normal. Heart size is normal. Bones and chest wall: No suspicious bony abnormalities. Age-appropriate bony degenerative changes are seen. Soft tissues appear unremarkable. IMPRESSION: No acute cardiopulmonary process is seen. Dictated by: Ethan Bey M.D. on 02/04/2021 at 16:02 Approved by: Ethan Bey M.D. on 02/04/2021 at 16:03
[2021-02-04 16:16] LABS: PTT Partial Thromboplastin Tim 37 SECONDS (26.4-36.2)
[2021-02-04 16:23] LABS: Alanine Aminotransferase 108 IU/L (<50); Albumin 4.8 g/dL (3.5-5.0); Albumin Globulin Ratio 1.4 (1.0-2.8); Alkaline Phosphatase 78 U/L (38-126); Aspartate Aminotransferase 129 IU/L (17-59); BUN Creatinine Ratio 22.7 (6-22); Bilirubin Total 0.6 mg/dL (0.2-1.3); Blood Urea Nitrogen 17 mg/dL (9-20); Calcium 9.4 mg/dL (8.4-10.2); Carbon Dioxide 25 mmol/L (22-32); Chloride 101 mmol/L (98-107); Estimated Glomerular Filt Rate > 60.0 mL/min (>60); Globulin 3.4 g/dL (1.7-4.1); Glucose 182 mg/dL (80-110); HEMOLYSIS 16 (0-50); Potassium 3.9 mmol/L (3.4-5.1); Sodium 137 mmol/L (137-145); Total Protein 8.2 g/dL (6.3-8.2)
[2021-02-04 16:47] LABS: C-Reactive Protein Quant < 0.5 mg/dL (<1.0)
[2021-02-04 16:54] LABS: Erythrocyte Sedimentation Rate 16 MM/HR (0-15)
[2021-02-04] MEDS: MORPHINE 4 MG/ML INJ IV (17:43)
--- NOTE | 2021-02-04 21:07 | ED.NEUROSD ---
HPI - Neuro Symptoms/Deficit <Dede Heredia PA-C - Last Filed: 02/06/21 13:07> General Chief Complaint: Neuro Symptoms/Deficit Stated Complaint: follow up tests after stroke Time Seen by Provider: 02/04/21 15:19 Source: patient Mode of arrival: Family Vehicle Limitations: no limitations History of Present Illness HPI Narrative: 60-year-old male with past medical history obstructive sleep apnea, diabetes, hyperlipidemia, renal cell carcinoma presents to the ED a visual field defect in his left eye. Patient states that he started noticing that the right upper quadrant of his vision in his left eye started appearing blurry, and later just being black week prior to arrival. Patient states that he saw an drawer hardware worker, who sent him to an knitted goods shaper for further evaluation. Patient was seen by knitted goods shaper Dr. 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 talked with Dr. Lucas over the phone, who confirmed the CRAO in the left eye, with [address] Lucas directed the patient to the ED for a stroke workup. Patient was started on aspirin. In the ED, patient states that he cannot see the right upper quadrant field from his left eye. Patient denies any eye pain, discomfort, headache. Patient denies any focal deficits. Patient denies numbness, tingling, weakness. Patient endorses normal gait. Patient denies fever, chills, chest pain, shortness of breath, cough, nausea, vomiting, abdominal pain, lightheadedness, dizziness, syncope. On Anticoagulants: Yes Related Data Home Medications Medication Instructions Recorded Confirmed CHOLECALCIFEROL (VITAMIN D3) 400 iu PO Q DAY #0 09/23/11 CINNAMON BARK (Cinnamon) 500 mg PO Q DAY #0 09/23/11 CA PANTOTHENATE/FOLIC ACID/VIT 1 tab PO Q DAY #0 02/23/12 (MULTIVITAMIN) CPAP: CPAP/PAP Nasal Mask HS #0 02/23/12 Pyridoxine (PYRIDOXINE TIME 200 mg PO QDAY #0 02/23/12 RELEASE~) albuterol sulfate 90 mcg/actuation 2 puff INH Q4HP #0 02/23/12 aerosol inhaler (Proventil HFA) insulin glargine 100 unit/mL 20 unit SQ BID #10 ml 05/02/12 subcutaneous solution (Lantus U-100 Insulin) OMEGA-3 FATTY ACIDS/FISH OIL (Fish 1,200 mg PO QDAY #0 05/09/12 Oil 1,200 MG Softgel) ondansetron HCl 8 mg tablet 8 mg PO TID PRN #0 05/09/12 (Zofran) trazodone 50 mg tablet 50 mg PO HS #0 05/09/12 CALCIUM CARBONATE (Calcium) 1 tab PO QDAY #0 05/17/12 lorazepam 1 mg tablet (Ativan) 0.5 mg PO HSP #0 07/22/12 Previous Rx's Medication Instructions Recorded salmeterol 50 mcg/dose blister 1 inh INH Q12HP #3 02/23/12 powder for inhalation (Serevent Diskus) insulin aspart U-100 100 unit/mL 0 - 15 unit SQ BLD #3 05/10/12 subcutaneous cartridge (Novolog PenFill U-100 Insulin aspart) atenolol 25 mg tablet 25 mg PO QDAY #30 11/07/12 pantoprazole 40 mg tablet,delayed 40 mg PO QDAYP #30 11/07/12 release (Protonix) valsartan 160 1 tab PO QDAY #30 11/07/12 mg-hydrochlorothiazide 25 mg tablet (Diovan HCT) meclizine 25 mg tablet 12.5 mg PO TID PRN #20 tab 02/25/18 Allergies Allergy/AdvReac Type Severity Reaction Status Date / Time No Known Drug Allergies Allergy Verified 02/04/21 11:45 Review of Systems <Dede Heredia PA-C - Last Filed: 02/06/21 13:07> Constitutional Constitutional: Denies chills, Denies fatigue, Denies fever(s), Denies frequent falls, Denies lethargy and Denies weakness Eyes Eyes: Denies change in vision, Denies eye discharge, Denies irritation and Denies loss of vision Comments: Left eye with right upper quadrant visual field loss ENT Ears, Nose, Mouth, and Throat: Denies change in voice, Denies dizziness, Denies neck pain, Denies sore throat and Denies throat swelling Cardiovascular Cardiovascular: Denies chest pain, Denies irregular heart rhythm, Denies lightheadedness, Denies palpitations, Denies dyspnea, Denies dyspnea on exertion and Denies orthopnea Respiratory Respiratory: Denies cough, Denies dyspnea, Denies dyspnea on exertion and Denies wheezing Gastrointestinal Gastrointestinal: Denies abdominal pain, Denies change in bowel habits, Denies diarrhea, Denies nausea and Denies vomiting Musculoskeletal Musculoskeletal: Denies neck pain and Denies numbness Integumentary/Breasts Skin/Breast: Denies pruritus, Denies erythema, Denies rash and Denies wounds Neurologic Neurologic: Denies behavioral changes, Denies confusion, Denies dizziness, Denies frequent falls, Denies loss of vision, Denies numbness and Denies weakness Psychiatric Psychiatric: Denies anxiety, Denies behavioral changes, Denies confusion, Denies depression, Denies homicidal ideation and Denies suicidal ideation Endocrine Endocrine: Denies fatigue, Denies flushing and Denies palpitations Hematologic/Lymphatic Hematologic/Lymphatic: Denies easy bruising On Anticoagulants: Yes Allergic/Immunologic Allergic/Immunologic: Denies urticaria, Denies throat swelling and Denies wheezing Patient History <Dede Heredia PA-C - Last Filed: 02/06/21 13:07> Medical History Anxiety disorder DDD (degenerative disc disease), lumbosacral Excessive daytime sleepiness GERD (gastroesophageal reflux disease) HTN (hypertension) Hyperlipidemia Obstructive sleep apnea of adult Primary insomnia Renal cell carcinoma Type 2 diabetes mellitus Surgical History H/O partial nephrectomy History of lumbar spinal fusion Social History marital status: number of children: 3 household members: friend(s) lives independently: Yes occupational status: previously employed 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 Smoking Status: Former smoker alcohol intake: former substance use type: does not use Smoking Status: Former smoker alcohol intake frequency: 3 or more drinks per day Substance Use Type: does not use Exam <Dede Heredia PA-C - Last Filed: 02/06/21 13:07> Initial Vital Signs Initial Vital Signs: Vital Signs Temperature 97.8 F 02/04/21 11:46 Pulse Rate 84 02/04/21 11:46 Respiratory Rate 19 02/04/21 11:46 Blood Pressure 182/90 H 02/04/21 11:46 Pulse Oximetry 97 02/04/21 11:46 Const General: cooperative HENMT Head: normocephalic and atraumatic Ears: external ears normal and TM's normal bilaterally Nose: external nose normal and No nasal discharge Face and sinus: sinuses nontender, face symmetric, no sinus tenderness and No dry mucous membranes Mouth: oral mucosae normal and moist mucous membranes Teeth and gingiva: dentition normal Throat: tonsils normal and uvula midline Eyes General: appearance normal, both eyes and all related structures Visual Villarreal: abnormal by confrontation upper inner visual field cut left Alignment and Position: alignment normal Periorbital: periorbital findings normal Eyelids: eyelids normal Conjunctivae: conjunctivae normal Sclera: sclerae normal Pupils: PERRL EOM: EOM intact bilaterally Neck Neck: normal visual inspection, trachea midline, No lymphadenopathy, No midline deformity and No JVD Lymphatic: No lymphedema Chest Chest: normal inspection of the chest Resp Effort & Inspection: normal respiratory effort, able to speak in complete sentences, no respiratory distress and no use of accessory muscles Auscultation: clear to auscultation bilaterally, no rales, no rhonchi and no wheezes Cardio Rate: regular rate Rhythm: regular rhythm Heart Sounds: no click, no gallops, no murmurs and no rubs Pulses: normal peripheral pulses GI Inspection: non-distended Palpation: soft, no hepatosplenomegaly, No guarding, No pulsatile mass and No tender Auscultation: normal bowel sounds Back/Spine/Pelvis Back: No CVA tenderness Cervical Spine: cervical ROM normal and No pain with cervical ROM Thoracic/Lumbar Spine: thoracic and lumbar spine normal to inspection Skin General: no rashes or lesions noted, No jaundice and No petechiae Neuro General: patient alert, patient oriented x3, gait normal and no focal motor deficits Speech: speech normal Other: PERRLA. CN 1 through 12 intact. Gait normal. Negative pronator drift, negative [id number], negative rapid alternating movements, negative [id number]. Strength and sensation intact. Normal range of motion. Patient is neurologically intact. Extrem General: full ROM, no clubbing, cyanosis or edema, no pedal edema and no calf tenderness Psych Appearance: well kempt Mental Status: mental status grossly normal Attitude: cooperative Thought Content: normal and suicidality Judgment: judgment good <Laila Herbert, - Last Filed: 02/07/21 00:38> Initial Vital Signs Initial Vital Signs: Vital Signs Temperature 97.8 F 02/04/21 11:46 Pulse Rate 84 02/04/21 11:46 Respiratory Rate 19 02/04/21 11:46 Blood Pressure 182/90 H 02/04/21 11:46 Pulse Oximetry 97 02/04/21 11:46 Course <Dede Heredia PA-C - Last Filed: 02/06/21 13:07> Course Course Narrative: Labs within normal limits. Labs not significant for temporal arteritis. Physical exam consistent with CRAO. left eye with visual field defect in the right upper quadrant. Extraocular movements normal. Patient Neurologically intact. Will discharge home with cardiology f/u as soon as possible to evaluate for cardiac emboli. Discussed risk of stroke, stroke symptoms to watch out for, ED return precautions. Patient verbalized understanding, will follow up with assistant professor of radiology yadi. Orders Ordered: Discontinued Medications Morphine Sulfate (Morphine 4 Mg/Ml Inj) 4 mg IV NOW ONE Stop: 02/04/21 17:33 Last Admin: 02/04/21 17:43 Dose: 4 mg Documented by: ESOBDULIO Vital Signs Vital signs: Vital Signs - 8 hr 02/04/21 15:52 02/04/21 16:00 02/04/21 16:30 Pulse Rate 78 77 83 Blood Pressure 159/89 H 164/92 H Pulse Oximetry 96 95 95 02/04/21 17:00 02/04/21 17:30 02/04/21 17:58 Pulse Rate 68 69 82 Blood Pressure Pulse Oximetry 94 94 95 02/04/21 18:00 02/04/21 18:01 02/04/21 18:02 Pulse Rate 80 78 72 Blood Pressure Pulse Oximetry 95 95 95 02/04/21 18:03 02/04/21 18:30 Pulse Rate 71 66 Blood Pressure 192/98 H Pulse Oximetry 95 95 <Laila Herbert DO - Last Filed: 02/07/21 00:38> Orders Ordered: Discontinued Medications Morphine Sulfate (Morphine 4 Mg/Ml Inj) 4 mg IV NOW ONE Stop: 02/04/21 17:33 Last Admin: 02/04/21 17:43 Dose: 4 mg Documented by: ESNODGRASS Vital Signs Vital signs: Vital Signs - 8 hr 02/04/21 15:52 02/04/21 16:00 02/04/21 16:30 Pulse Rate 78 77 83 Blood Pressure 159/89 H 164/92 H Pulse Oximetry 96 95 95 02/04/21 17:00 02/04/21 17:30 02/04/21 17:58 Pulse Rate 68 69 82 Blood Pressure Pulse Oximetry 94 94 95 02/04/21 18:00 02/04/21 18:01 02/04/21 18:02 Pulse Rate 80 78 72 Blood Pressure Pulse Oximetry 95 95 95 02/04/21 18:03 02/04/21 18:30 Pulse Rate 71 66 Blood Pressure 192/98 H Pulse Oximetry 95 95 MDM - Neuro Symptoms/Deficit <Dede Heredia PA-C - Last Filed: 02/06/21 13:07> Lab Data Result diagrams: 02/04/21 15:30 02/04/21 15:30 Labs: Lab Results 02/04/21 02/04/21 02/04/21 Range/Units 15:30 15:30 15:30 WBC 7.0 (4.5-11.0) X10^3/uL RBC 4.85 (4.5-5.9) X10^6/uL Hgb 14.6 (13.5-17.5) g/dL Hct 42.9 (41-53) % MCV 88.6 (80-100) fL MCH 30.1 (26-34) PG MCHC 34.0 (30-36) % RDW 13.5 (11.6-14.8) % Plt Count 222 (150-400) X10^3/uL Neut % (Auto) 61.7 (50-75) % Lymph % (Auto) 28.4 (25-40) % [place] % (Auto) 7.0 (3-14) % Eos % (Auto) 2.1 (2-4) % Baso % (Auto) 0.8 (0-2) % Neut # (Auto) 4400 (5566-3809) /uL Lymph # (Auto) 2000 (8643-1305) /uL [place] # (Auto) 500 (0-900) /uL Eos # (Auto) 100 (0-450) /uL Baso # (Auto) 100 (0-100) /uL ESR (0-15) MM/HR PT 12.7 (10.1-12.7) SECONDS INR 1.1 (0.9-1.3) APTT 37 H (26.4-36.2) SECONDS Sodium 137 (137-145) mmol/L Potassium 3.9 (3.4-5.1) mmol/L Chloride 101 (98-107) mmol/L Carbon Dioxide 25 (22-32) mmol/L BUN 17 (9-20) mg/dL Creatinine 0.75 (0.66-1.25) mg/dL Estimated GFR > 60.0 (>60) mL/min BUN/Creatinine Ratio 22.7 H (6-22) Glucose 182 H (80-110) mg/dL Calcium 9.4 (8.4-10.2) mg/dL Total Bilirubin 0.6 (0.2-1.3) mg/dL AST 129 H (17-59) IU/L ALT 108 H (<50) IU/L Alkaline Phosphatase 78 (38-126) U/L C-Reactive Protein (<1.0) mg/dL Total Protein 8.2 (6.3-8.2) g/dL Albumin 4.8 (3.5-5.0) g/dL Globulin 3.4 (1.7-4.1) g/dL Albumin/Globulin Ratio 1.4 (1.0-2.8) 02/04/21 02/04/21 Range/Units 15:30 15:30 WBC (4.5-11.0) X10^3/uL RBC (4.5-5.9) X10^6/uL Hgb (13.5-17.5) g/dL Hct (41-53) % MCV (80-100) fL MCH (26-34) PG MCHC (30-36) % RDW (11.6-14.8) % Plt Count (150-400) X10^3/uL Neut % (Auto) (50-75) % Lymph % (Auto) (25-40) % [place] % (Auto) (3-14) % Eos % (Auto) (2-4) % Baso % (Auto) (0-2) % Neut # (Auto) (6097-9235) /uL Lymph # (Auto) (8942-2283) /uL [place] # (Auto) (0-900) /uL Eos # (Auto) (0-450) /uL Baso # (Auto) (0-100) /uL ESR 16 H (0-15) MM/HR PT (10.1-12.7) SECONDS INR (0.9-1.3) APTT (26.4-36.2) SECONDS Sodium (137-145) mmol/L Potassium (3.4-5.1) mmol/L Chloride (98-107) mmol/L Carbon Dioxide (22-32) mmol/L BUN (9-20) mg/dL Creatinine (0.66-1.25) mg/dL Estimated GFR (>60) mL/min BUN/Creatinine Ratio (6-22) Glucose (80-110) mg/dL Calcium (8.4-10.2) mg/dL Total Bilirubin (0.2-1.3) mg/dL AST (17-59) IU/L ALT (<50) IU/L Alkaline Phosphatase (38-126) U/L C-Reactive Protein < 0.5 (<1.0) mg/dL Total Protein (6.3-8.2) g/dL Albumin (3.5-5.0) g/dL Globulin (1.7-4.1) g/dL Albumin/Globulin Ratio (1.0-2.8) Imaging Data Chest x-ray: Radiologist's Impression: PROCEDURE:? XR CHEST 2V ? INDICATIONS:? vision loss ? TECHNIQUE:? 2 views of the chest were acquired.? ? COMPARISON:? [facility], CT, CT HEAD/BRAIN WO CON, 02/04/2021, 16:38.? [facility], CT, CT ANGIO HEAD AND NECK, 02/04/2021, 16:38.? [facility], CR, CHEST 1 VIEW, 05/22/2012, 8:21. ? FINDINGS:? ? Surgical changes and devices:? None.? ? Lungs and pleura:? An incomplete inspiratory result is noted, causing a crowded appearance to the lung markings.? No focal infiltrates are seen.? No pneumothorax or significant pleural effusions are seen. ? ? Mediastinum:? Mediastinal contours are normal.? Heart size is normal.? ? Bones and chest wall:? No suspicious bony abnormalities.? Age-appropriate bony degenerative changes are seen.? ? Soft tissues appear unremarkable.? IMPRESSION:? ? No acute cardiopulmonary process is seen.? Dictated by: Ethan Bey M.D. on 02/04/2021 at 16:02 ? ? Approved by: Ethan Bey M.D. on 02/04/2021 at 16:03 ? CT scan - head: Radiologist's Impression: PROCEDURE: CT HEAD/BRAIN WO CON INDICATIONS: Vision loss TECHNIQUE: Noncontrast 4.5 mm thick angled axial sections acquired from the foramen magnum to the vertex, with coronal and sagittal reformats. For radiation dose reduction, the following was used: automated exposure control, adjustment of mA and/or kV according to patient size. COMPARISON: [facility], CT, CT ANGIO HEAD AND NECK, 02/04/2021, 16:38. [facility], CT, CT HEAD/BRAIN WO CON, 02/25/2018, 7:53. [facility], CT, CT HEAD/BRAIN WO CON, 11/30/2020, 13:52. FINDINGS: Image quality: Excellent. CSF spaces: Basal cisterns are patent. No extra-axial fluid collections. The ventricles are symmetric in size and shape. Brain: Size of parenchymal calcification can be seen, which are largely seen along the ramsey-white junction within the left cerebral hemisphere. No intracranial bleeds or masses. There is cerebral volume loss for age, with resultant ventricular and sulcal prominence. There are periventricular and deep white matter chronic small vessel ischemic changes. There is intracranial internal carotid artery atherosclerosis. Skull and face: Calvarium and visualized facial bones appear intact, without suspicious lesions. Sinuses: Visualized sinuses and mastoids are clear. IMPRESSION: No acute intracranial hemorrhage is seen. No acute intracranial process is seen. Stable foci of parenchymal calcification can be seen. These are nonspecific, although please consider prior infection, including there is focal neurocysticercosis. Dictated by: Ethan Bey M.D. on 02/04/2021 at 16:11 Approved by: Ethan Bey M.D. on 02/04/2021 at 16:13 CTA - brain/neck: Radiologist's Impression: PROCEDURE: CT ANGIO HEAD AND NECK INDICATIONS: vision loss TECHNIQUE: Noncontrast images were performed earlier in the day and not repeated. After the administration of intravenous contrast, 1 mm thick sections acquired from the aortic arch through the [place] of [place]. Post-contrast 4.5 mm thick sections then re-acquired from the foramen magnum to the vertex. 3-dimensional awexefi-nnsdfifna-qwwocfvtun (MIP) and/or volume rendering reformats were acquired of the central intracranial vasculature and neck separately. COMPARISON: [facility], CT, CT HEAD/BRAIN WO CON, 02/25/2018, 7:53. [facility], CT, CT HEAD/BRAIN WO CON, 02/04/2021, 16:38. [facility], CT, CT HEAD/BRAIN WO CON, 11/30/2020, 13:52. FINDINGS: Image quality: Excellent. BRAIN: CSF spaces: Ventricles are normal in size and shape. Basal cisterns are patent. No extra-axial fluid collections. Brain: No midline shift. No intracranial bleeds or masses. Ramsey-white matter interface appears intact. Skull and face: Calvarium and facial bones appear intact, without suspicious lesions. Orbits appear normal. Sinuses: Sinuses and mastoids are clear. HEAD CT ANGIOGRAPHY: Anterior circulation: Intracranial internal carotid arteries are normal in size and flow. There is a diminutive right A1 segment, with a corresponding robust left A1 segment. This is considered to be a normal developmental variant of the [place] of [place], of typically no clinical consequence. The flow within the paired anterior cerebral arteries is otherwise normal and symmetric. The flow within the middle cerebral arteries is normal and symmetric. The anterior communicating artery is seen. No aneurysms are seen. Posterior circulation: Visualized portions of the vertebral arteries demonstrate normal caliber, and join to form a normal appearing basilar artery. There is a prominent right posterior communicating artery seen, with an accompanying diminutive right P1 segment. This is attributed to a type origin of the right posterior cerebral artery, which is considered to be a normal developmental variant of typically no clinical consequence. Flow within the posterior cerebral arteries is normal and symmetric. No aneurysms are seen. NECK CT ANGIOGRAPHY: Carotid system: The great vessels demonstrate a conventional anatomy as they arise from the aortic arch. The origins of the common carotid arteries appear patent. The common carotid arteries demonstrate normal caliber and courses. The bifurcation regions demonstrate atherosclerotic irregularity and calcification. There is approximately 70% narrowing seen involving the left proximal internal carotid artery. Approximately 20% narrowing can be seen involving the right proximal internal carotid artery. The more distal internal carotid arteries demonstrate normal course and caliber. Posterior circulation: The origins of the vertebral arteries both appear widely patent. Incidental note is made of a direct origin of the left vertebral artery from the aortic arch. The more superior extracranial portions of both vertebral arteries also demonstrate normal courses and calibers. They join to form a normal appearing basilar artery. Soft tissues: Visualized neck soft tissues demonstrate no suspicious abnormalities. Bones: No suspicious bony lesions. Visualized cervical spine appears normally aligned. Moderate cervical spine degenerative changes are seen. IMPRESSION: No significant intracranial arterial abnormality is seen. There is approximately 70% narrowing seen involving the left proximal internal carotid artery and approximately 20% narrowing involving the right proximal internal carotid artery. No abnormal enhancement is seen. Incidental note is made of: Direct origin of the left vertebral artery from the aortic arch. [id number] developmental anomalies. Moderate cervical spine degenerative change Any quantitative measurements of stenosis were performed using NASCET criteria. Dictated by: Ethan Bey M.D. on 02/04/2021 at 16:07 Approved by: Ethan Bey M.D. on 02/04/2021 at 16:11 [facility] Narrative Medical decision making narrative: 60-year-old male with past medical history obstructive sleep apnea, diabetes, hyperlipidemia, renal cell carcinoma presents to the ED a visual field defect in his left eye. Concern for CR A/O versus CVA versus intracranial bleeds versus large vessel occlusion versus temporal arteritis versus cardiac emboli. Will order labs, ESR, CRP, CT head, CTA head and neck, EKG, CXR. will reassess. <Laila Herbert, DO - Last Filed: 02/07/21 00:38> Lab Data Labs: Lab Results 02/04/21 02/04/21 02/04/21 Range/Units 15:30 15:30 15:30 WBC 7.0 (4.5-11.0) X10^3/uL RBC 4.85 (4.5-5.9) X10^6/uL Hgb 14.6 (13.5-17.5) g/dL Hct 42.9 (41-53) % MCV 88.6 (80-100) fL MCH 30.1 (26-34) PG MCHC 34.0 (30-36) % RDW 13.5 (11.6-14.8) % Plt Count 222 (150-400) X10^3/uL Neut % (Auto) 61.7 (50-75) % Lymph % (Auto) 28.4 (25-40) % [place] % (Auto) 7.0 (3-14) % Eos % (Auto) 2.1 (2-4) % Baso % (Auto) 0.8 (0-2) % Neut # (Auto) 4400 (1509-4407) /uL Lymph # (Auto) 2000 (0234-5073) /uL [place] # (Auto) 500 (0-900) /uL Eos # (Auto) 100 (0-450) /uL Baso # (Auto) 100 (0-100) /uL ESR (0-15) MM/HR PT 12.7 (10.1-12.7) SECONDS INR 1.1 (0.9-1.3) APTT 37 H (26.4-36.2) SECONDS Sodium 137 (137-145) mmol/L Potassium 3.9 (3.4-5.1) mmol/L Chloride 101 (98-107) mmol/L Carbon Dioxide 25 (22-32) mmol/L BUN 17 (9-20) mg/dL Creatinine 0.75 (0.66-1.25) mg/dL Estimated GFR > 60.0 (>60) mL/min BUN/Creatinine Ratio 22.7 H (6-22) Glucose 182 H (80-110) mg/dL Calcium 9.4 (8.4-10.2) mg/dL Total Bilirubin 0.6 (0.2-1.3) mg/dL AST 129 H (17-59) IU/L ALT 108 H (<50) IU/L Alkaline Phosphatase 78 (38-126) U/L C-Reactive Protein (<1.0) mg/dL Total Protein 8.2 (6.3-8.2) g/dL Albumin 4.8 (3.5-5.0) g/dL Globulin 3.4 (1.7-4.1) g/dL Albumin/Globulin Ratio 1.4 (1.0-2.8) 02/04/21 02/04/21 Range/Units 15:30 15:30 WBC (4.5-11.0) X10^3/uL RBC (4.5-5.9) X10^6/uL Hgb (13.5-17.5) g/dL Hct (41-53) % MCV (80-100) fL MCH (26-34) PG MCHC (30-36) % RDW (11.6-14.8) % Plt Count (150-400) X10^3/uL Neut % (Auto) (50-75) % Lymph % (Auto) (25-40) % [place] % (Auto) (3-14) % Eos % (Auto) (2-4) % Baso % (Auto) (0-2) % Neut # (Auto) (2180-6966) /uL Lymph # (Auto) (8709-1898) /uL [place] # (Auto) (0-900) /uL Eos # (Auto) (0-450) /uL Baso # (Auto) (0-100) /uL ESR 16 H (0-15) MM/HR PT (10.1-12.7) SECONDS INR (0.9-1.3) APTT (26.4-36.2) SECONDS Sodium (137-145) mmol/L Potassium (3.4-5.1) mmol/L Chloride (98-107) mmol/L Carbon Dioxide (22-32) mmol/L BUN (9-20) mg/dL Creatinine (0.66-1.25) mg/dL Estimated GFR (>60) mL/min BUN/Creatinine Ratio (6-22) Glucose (80-110) mg/dL Calcium (8.4-10.2) mg/dL Total Bilirubin (0.2-1.3) mg/dL AST (17-59) IU/L ALT (<50) IU/L Alkaline Phosphatase (38-126) U/L C-Reactive Protein < 0.5 (<1.0) mg/dL Total Protein (6.3-8.2) g/dL Albumin (3.5-5.0) g/dL Globulin (1.7-4.1) g/dL Albumin/Globulin Ratio (1.0-2.8) ECG Data Interpretation: Sinus rhythm rate 75 IN interval 166 QRS 80 QTC 440 Q-wave noted in lead 3 only with T-wave inversions similar to previous EKG no ST changes Discharge Plan Departure Patient Disposition: Home Clinical Impression: CRAO (central retinal artery occlusion) Qualifiers: Laterality: left Qualified Code(s): H34.12 - Central retinal artery occlusion, left eye Instructions: DI for Visual Field Disturbances Activity Restrictions/Additional Instructions: You were evaluated in the ED today for a central retinal artery occlusion in your left eye. Your CT angiogram of the head and neck shows 70% narrowing of the left proximal internal carotid artery and 20% narrowing of the right proximal internal carotid artery, which could be the source of the CRAO. Please follow-up with a assistant professor of radiology immediately for an echocardiogram to rule out cardiac emboli. Return to the ED if your symptoms worsen, you experience signs of a stroke such as slurring of speech, weakness, balance problems. Prescriptions: No Action CINNAMON BARK (Cinnamon) 500 mg PO Q DAY Qty: 0 RF: 0 CHOLECALCIFEROL (VITAMIN D3) 400 iu PO Q DAY Qty: 0 RF: 0 CA PANTOTHENATE/FOLIC ACID/VIT (MULTIVITAMIN) 1 tab PO Q DAY Qty: 0 RF: 0 CPAP: CPAP/PAP Nasal Mask HS Qty: 0 RF: 0 albuterol sulfate [Proventil HFA] 90 MCG/PUFF HFA aerosol inhaler 2 puff INH Q4HP Qty: 0 RF: 0 Pyridoxine (PYRIDOXINE TIME RELEASE~) 200 mg PO QDAY Qty: 0 RF: 0 salmeterol [Serevent Diskus] 50 MCG blister with device 1 inh INH Q12HP Qty: 3 RF: 1 insulin glargine [Lantus U-100 Insulin] 100 UNIT/1 ML solution 20 unit SQ BID Qty: 10 RF: 0 trazodone 50 MG tablet 50 mg PO HS Qty: 0 RF: 0 OMEGA-3 FATTY ACIDS/FISH OIL (Fish Oil 1,200 MG Softgel) 1,200 mg PO QDAY Qty: 0 RF: 0 ondansetron HCl [Zofran] 8 MG tablet 8 mg PO TID PRN Qty: 0 RF: 0 insulin aspart U-100 [Novolog PenFill U-100 Insulin] 100 UNIT/1 ML cartridge 0 - 15 unit SQ BLD Qty: 3 RF: 1 CALCIUM CARBONATE (Calcium) 1 tab PO QDAY Qty: 0 RF: 0 lorazepam [Ativan] 1 MG tablet 0.5 mg PO HSP Qty: 0 RF: 0 atenolol 25 MG tablet 25 mg PO QDAY Qty: 30 RF: 0 pantoprazole [Protonix] 40 MG tablet,delayed release (DR/EC) 40 mg PO QDAYP Qty: 30 RF: 0 valsartan-hydrochlorothiazide [Diovan HCT] 160 MG/25 MG tablet 1 tab PO QDAY Qty: 30 RF: 0 meclizine 25 mg tablet 12.5 mg PO TID PRN (Reason: dizziness) Qty: 20 RF: 0 Referrals: Nahid Coyle MD [Primary Care Provider] - <Laila Herbert DO - Last Filed: 02/07/21 00:38> Cosign ED Attending Nbaature Attestation: I was immediately available in the department for consultation. Documentation has been reviewed. I agree with assessment and plan.
== END 2021-02-04 18:32 | disposition home or self-care (01) ==
PROVIDERS: Emergency Provider Student in an Organized Health Care Education/Training Program; Family Provider Internal Medicine; PCP Internal Medicine
DX: H34.12 Central retinal artery occlusion, left eye (principal); I10 Essential (primary) hypertension; Z87.891 Personal history of nicotine dependence
CPT/HCPCS: 36415; 70450; 70496; 70498; 71046; 80053; 85025; 85610; 85651; 85730; 86140; 93005; 96374; 99284; J2270

== ENCOUNTER → 2021-02-26 10:00 | Outpatient (CLI) | payer OTHER, SELFPAY ==
--- NOTE | 2021-02-26 | DI.US.S_ITS ---
PROCEDURE: US CAROTID DOPPLER BI INDICATIONS: CVA TECHNIQUE: Color and pulse Doppler interrogation was performed of both carotid systems, with image documentation and velocity measurements. COMPARISON: None. FINDINGS: Stenosis calculations are based on SRU (Society of Radiologists in Ultrasound) criteria. Right side: Brachial blood pressure: 176/104 mm Hg. Common carotid artery peak systolic velocity: 75 cm/sec. Internal carotid artery peak systolic velocity: 54 cm/sec. Internal carotid artery end diastolic velocity: 24 cm/sec. External carotid artery peak systolic velocity: 104 cm/sec. ICA/CCA peak systolic ratio: 0.7 . Ramsey scale imaging description: Heavy scattered plaque. Percent internal carotid artery stenosis: Less than 50% . Vertebral artery: Flow direction is antegrade. Left side: Brachial blood pressure: 159/91 mm Hg. Common carotid artery peak systolic velocity: 95 cm/sec. Internal carotid artery peak systolic velocity: 75 cm/sec. Internal carotid artery end diastolic velocity: 19 cm/sec. External carotid artery peak systolic velocity: 105 cm/sec. ICA/CCA peak systolic ratio: 0.8 . Ramsey scale imaging description: Heavy scattered plaque. Percent internal carotid artery stenosis: Less than 50% . Vertebral artery: Flow direction is antegrade. IMPRESSION: Less than 50% bilateral internal carotid artery stenosis. Hypertension at time of examination. Dictated by: Roberto Schroeder RRA Interpreted: Temo Carrasquillo MD on 02/26/2021 at 11:58 Transcribed by: FELECIA on 02/26/2021 at 11:59 Approved by: Temo Carrasquillo M.D. on 02/26/2021 at 16:07
== END ==
PROVIDERS: Family Provider Internal Medicine; PCP Internal Medicine; Referring Provider Internal Medicine Cardiovascular Disease; Visit Provider Internal Medicine Cardiovascular Disease
DX: I63.9 Cerebral infarction, unspecified (principal); I65.23 Occlusion and stenosis of bilateral carotid arteries
CPT/HCPCS: 93880

== ENCOUNTER → 2021-10-16 17:12 | Outpatient (CLI) | payer OTHER, SELFPAY ==
[2021-10-16 17:56] LABS: Hemoglobin 12.7 g/dL (13.5-17.5); Mean Corpuscular HGB Conc 32.5 % (30-36); Mean Corpuscular Hemoglobin 24.5 PG (26-34); Mean Corpuscular Volume 75.5 fL (80-100); Platelet Count 190 X10^3/uL (150-400); Red Blood Cell Count 5.17 X10^6/uL (4.5-5.9); Red Cell Distribution Width 16.7 % (11.6-14.8); White Blood Cell Count 7.3 X10^3/uL (4.5-11.0)
[2021-10-16 18:58] LABS: Creatinine Urine Random 195.5 mg/dL
[2021-10-16 18:59] LABS: Microalbumi Creatinin Ratio Ur 37.8 ug/mg CR (<30); Microalbumin Urine Random 7.4 mg/dL (0-1.6)
[2021-10-17 02:30] LABS: Hemoglobin A1C% w Est Avg Glu 10.9 % (4.0-6.0)
[2021-10-17 02:55] LABS: Alanine Aminotransferase 51 IU/L (<50); Albumin 4.6 g/dL (3.5-5.0); Albumin Globulin Ratio 1.4 (1.0-2.8); Alkaline Phosphatase 75 U/L (38-126); Aspartate Aminotransferase 37 IU/L (17-59); BUN Creatinine Ratio 27.9 (6-22); Bilirubin Total 0.5 mg/dL (0.2-1.3); Blood Urea Nitrogen 19 mg/dL (9-20); Calcium 9.2 mg/dL (8.4-10.2); Carbon Dioxide 29 mmol/L (22-32); Chloride 100 mmol/L (98-107); Cholesterol 159 mg/dL (140-199); Estimated Glomerular Filt Rate > 60 mL/min (>60); Globulin 3.4 g/dL (1.7-4.1); Glucose 226 mg/dL (80-110); HDL Cholesterol 40 mg/dL (40-60); HEMOLYSIS < 15 (0-50); LDL Cholesterol Calculated 72 mg/dL (<100); Potassium 4.2 mmol/L (3.4-5.1); Sodium 137 mmol/L (137-145); Triglycerides 235 mg/dL (35-150)
[2021-10-17 03:32] LABS: TSH w/ Reflex to FT4 1.31 uIU/mL (0.47-4.68)
== END ==
PROVIDERS: Family Provider Internal Medicine; PCP Internal Medicine; Referring Provider Internal Medicine; Visit Provider Internal Medicine
DX: I10 Essential (primary) hypertension (principal); E11.59 Type 2 diabetes mellitus with other circulatory complications; R97.20 Elevated prostate specific antigen [PSA]; E78.2 Mixed hyperlipidemia; I25.10 Atherosclerotic heart disease of native coronary artery without angina pectoris; N40.0 Benign prostatic hyperplasia without lower urinary tract symptoms
CPT/HCPCS: 36415; 80053; 80061; 82043; 82570; 83036; 84153; 84443; 85027

== ENCOUNTER → 2022-01-29 09:14 | Outpatient (CLI) | payer OTHER, SELFPAY ==
[2022-01-29 11:10] LABS: Hematocrit 37.8 % (41-53); Hemoglobin 12.1 g/dL (13.5-17.5); Mean Corpuscular HGB Conc 32.1 % (30-36); Mean Corpuscular Hemoglobin 24.2 PG (26-34); Mean Corpuscular Volume 75.3 fL (80-100); Platelet Count 199 X10^3/uL (150-400); Red Blood Cell Count 5.02 X10^6/uL (4.5-5.9); Red Cell Distribution Width 16.2 % (11.6-14.8); White Blood Cell Count 5.5 X10^3/uL (4.5-11.0)
[2022-01-29 11:16] LABS: Hemoglobin A1C% w Est Avg Glu 9.6 % (4.0-6.0)
[2022-01-29 11:32] LABS: BUN Creatinine Ratio 24.6 (6-22); Blood Urea Nitrogen 15 mg/dL (9-20); Calcium 9.3 mg/dL (8.4-10.2); Carbon Dioxide 25 mmol/L (22-32); Chloride 96 mmol/L (98-107); Estimated Glomerular Filt Rate > 60 mL/min (>60); Glucose 259 mg/dL (80-110); HEMOLYSIS < 15 (0-50); Potassium 4.2 mmol/L (3.4-5.1); Sodium 136 mmol/L (137-145)
[2022-01-29 11:33] LABS: HEMOLYSIS < 15 (0-50); Iron 61 ug/dL (49-181)
[2022-01-29 11:44] LABS: Percent Iron Saturation 11 % (20-50); Total Iron Binding Capacity 567 ug/dL (261-462); Transferrin 437 mg/dL (206-381)
[2022-01-29 11:58] LABS: Ferritin 12 ng/mL (18-464)
[2022-01-29 12:12] LABS: Vitamin B12 592 pg/mL (239-931)
== END ==
PROVIDERS: Family Provider Internal Medicine; PCP Internal Medicine; Referring Provider Internal Medicine; Visit Provider Internal Medicine
DX: D50.9 Iron deficiency anemia, unspecified (principal); E11.59 Type 2 diabetes mellitus with other circulatory complications; E53.8 Deficiency of other specified B group vitamins
CPT/HCPCS: 36415; 80048; 82607; 82728; 83036; 83540; 83550; 85027

== ENCOUNTER → 2022-03-23 16:45 | Outpatient (CLI) | payer OTHER, SELFPAY ==
[2022-03-23 23:04] LABS: Hematocrit 39.9 % (41-53); Mean Corpuscular HGB Conc 32.5 % (30-36); Mean Corpuscular Hemoglobin 24.1 PG (26-34); Mean Corpuscular Volume 74.2 fL (80-100); Platelet Count 212 X10^3/uL (150-400); Red Blood Cell Count 5.38 X10^6/uL (4.5-5.9); Red Cell Distribution Width 16.4 % (11.6-14.8); White Blood Cell Count 7.2 X10^3/uL (4.5-11.0)
[2022-03-24 00:45] LABS: Glucose 198 mg/dL (80-110)
[2022-03-24 01:15] LABS: Ferritin 10 ng/mL (18-464)
[2022-03-24 03:04] LABS: HEMOLYSIS < 15 (0-50); Iron 47 ug/dL (49-181)
[2022-03-24 03:16] LABS: Percent Iron Saturation 8 % (20-50); Total Iron Binding Capacity 578 ug/dL (261-462); Transferrin 458 mg/dL (206-381)
== END ==
PROVIDERS: Family Provider Internal Medicine; PCP Internal Medicine; Referring Provider Internal Medicine; Visit Provider Internal Medicine
DX: D50.9 Iron deficiency anemia, unspecified (principal); E11.59 Type 2 diabetes mellitus with other circulatory complications
CPT/HCPCS: 36415; 82728; 82947; 83540; 83550; 85027

== ENCOUNTER → 2022-07-06 09:14 | Outpatient (CLI) | payer OTHER, SELFPAY ==
[2022-07-06 10:19] LABS: Hematocrit 38.8 % (41-53); Hemoglobin 12.8 g/dL (13.5-17.5); Mean Corpuscular HGB Conc 33.1 % (30-36); Mean Corpuscular Hemoglobin 25.2 PG (26-34); Platelet Count 201 X10^3/uL (150-400); Red Cell Distribution Width 16.9 % (11.6-14.8); White Blood Cell Count 5.5 X10^3/uL (4.5-11.0)
[2022-07-06 11:13] LABS: BUN Creatinine Ratio 24.6 (6-22); Blood Urea Nitrogen 15 mg/dL (9-20); Calcium 9.7 mg/dL (8.4-10.2); Carbon Dioxide 27 mmol/L (22-32); Chloride 97 mmol/L (98-107); Estimated Glomerular Filt Rate > 60 mL/min (>60); Glucose 298 mg/dL (80-110); HEMOLYSIS < 15 (0-50); Potassium 4.4 mmol/L (3.4-5.1); Sodium 135 mmol/L (137-145)
[2022-07-06 11:46] LABS: Ferritin 11 ng/mL (18-464)
[2022-07-07 05:02] LABS: HEMOLYSIS < 15 (0-50); Iron 48 ug/dL (49-181)
[2022-07-07 05:16] LABS: Percent Iron Saturation 8 % (20-50); Total Iron Binding Capacity 593 ug/dL (261-462); Transferrin 432 mg/dL (206-381)
[2022-07-07 07:22] LABS: Labcorp Hemoglobin (Hb) A1c 11.1 % (4.8-5.6)
== END ==
PROVIDERS: Family Provider Internal Medicine; PCP Internal Medicine; Referring Provider Internal Medicine; Visit Provider Internal Medicine
DX: D50.9 Iron deficiency anemia, unspecified (principal); I10 Essential (primary) hypertension; E11.59 Type 2 diabetes mellitus with other circulatory complications
CPT/HCPCS: 36415; 80048; 82728; 83036; 83540; 83550; 85027

== ENCOUNTER → 2022-10-07 11:30 | Outpatient (CLI) | payer OTHER, SELFPAY ==
[2022-10-07 12:57] LABS: Hemoglobin 12.3 g/dL (13.5-17.5); Mean Corpuscular HGB Conc 32.3 % (30-36); Mean Corpuscular Hemoglobin 24.5 PG (26-34); Mean Corpuscular Volume 75.8 fL (80-100); Platelet Count 193 X10^3/uL (150-400); Red Blood Cell Count 5.01 X10^6/uL (4.5-5.9); Red Cell Distribution Width 16.6 % (11.6-14.8); White Blood Cell Count 6.1 X10^3/uL (4.5-11.0)
[2022-10-07 13:26] LABS: Alanine Aminotransferase 73 IU/L (<50); Albumin 4.6 g/dL (3.5-5.0); Albumin Globulin Ratio 1.4 (1.0-2.8); Alkaline Phosphatase 64 U/L (38-126); Aspartate Aminotransferase 58 IU/L (17-59); BUN Creatinine Ratio 28.1 (6-22); Bilirubin Total 0.5 mg/dL (0.2-1.3); Blood Urea Nitrogen 18 mg/dL (9-20); Calcium 9.5 mg/dL (8.4-10.2); Carbon Dioxide 26 mmol/L (22-32); Chloride 99 mmol/L (98-107); Cholesterol 152 mg/dL (140-199); Estimated Glomerular Filt Rate > 60 mL/min (>60); Globulin 3.4 g/dL (1.7-4.1); Glucose 174 mg/dL (80-110); HDL Cholesterol 43 mg/dL (40-60); HEMOLYSIS < 15 (0-50); LDL Cholesterol Calculated 59 mg/dL (<100); Potassium 4.5 mmol/L (3.4-5.1); Sodium 138 mmol/L (137-145); Triglycerides 249 mg/dL (35-150)
[2022-10-07 13:51] LABS: Prostate Specific Antigen 3.11 ng/mL (0.10-4.00)
[2022-10-07 13:55] LABS: Ferritin 11 ng/mL (18-464)
[2022-10-08 22:07] LABS: x Labcorp Estim. Avg Glu (eAG) 203 mg/dL (.); x Labcorp Hemoglobin A1c 8.7 % (4.8-5.6)
== END ==
PROVIDERS: Family Provider Internal Medicine; PCP Internal Medicine; Referring Provider Internal Medicine; Visit Provider Internal Medicine
DX: D50.9 Iron deficiency anemia, unspecified (principal); E11.59 Type 2 diabetes mellitus with other circulatory complications; N40.0 Benign prostatic hyperplasia without lower urinary tract symptoms; I25.10 Atherosclerotic heart disease of native coronary artery without angina pectoris
CPT/HCPCS: 36415; 80053; 80061; 82728; 83036; 84153; 85027

== ENCOUNTER 2022-11-25 07:11 | Day surgery (SDC) | payer OTHER, SELFPAY ==
--- NOTE | 2022-11-25 | PATH_ITS ---
[facility] Accession Number: [id number] No. of containers..01 Tissue . 01 Material submitted: . rectum - RECTAL POLYP . 01 Diagnosis: Rectal Polyp: Hyperplastic polyp. MRV 12/08/2022 1323 Local . 01 Electronically signed: . Tahir Valdes MD, PhD, Pathologist NPI- [id number] . 01 Gross description: . RECTAL POLYP: Received in formalin is 1 fragment(s) of roberto, soft tissue measuring 0.5 x 0.4 x 0.1 cm submitted entirely in 1 cassette(s) /AAY 11/30/2022 2245 Local . 01 Pathologist provided ICD-10: K62.1 . 01 CPT . 317081 Specimen Comment: A courtesy copy of this report has been sent to [phone] Performed at: 01 [facility] [address] [place] [address], [place], [place] [id number] MD Justin Zavala MD Phone: [phone]
[2022-11-25 07:30] VITALS: BP 200/89; PULSE 60; RESP 17; TEMP 36.2; O2SAT 96; BMI 36.9
[2022-11-25] MEDS: LACTATED RINGERS 1,000 ML 84 ML IV (07:54)
--- NOTE | 2022-11-25 08:31 | PM.HP.1 ---
History of Present Illness History of Present Illness Date Patient Seen: 11/25/22 Chief complaint: SDC Narrative: Need for colorectal cancer screening and a known alcoholic cirrhosis. Rule out esophageal varices [facility] Medical History (Updated 10/07/22 @ 11:17 by Nahid Coyle MD) Cerebrovascular disease Chronic low back pain Chronic, continuous use of opioids Coronary artery disease DDD (degenerative disc disease), lumbosacral Depression, major, recurrent Essential hypertension Excessive daytime sleepiness Generalized anxiety disorder GERD without esophagitis History of hepatitis C History of renal cell carcinoma Iron deficiency anemia Mixed hyperlipidemia Obstructive sleep apnea of adult Portal hypertensive gastropathy Primary insomnia Renal cell carcinoma Type 2 diabetes mellitus with cardiac complication Surgical History H/O partial nephrectomy History of lumbar spinal fusion Social History marital status: number of children: 3 household members: friend(s) lives independently: Yes occupational status: previously employed 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 Smoking Status: Former smoker alcohol intake: former substance use type: does not use Meds Home Medications and Allergies Home Medications Medication Instructions Recorded Confirmed Type CPAP: CPAP/PAP Nasal Mask HS ##0 02/23/12 10/07/22 History lorazepam 1 mg tablet (Ativan) 0.5 mg PO HSP anxiety #30 tabs 10/16/21 10/07/22 Rx lisinopril 10 mg tablet 10 mg PO DAILY #90 tabs 12/30/21 10/07/22 Rx pantoprazole 40 mg tablet,delayed 40 mg PO QDAYP #90 tabs 12/30/21 10/07/22 Rx release (Protonix) metformin 500 mg tablet 500 mg PO BID #180 tabs 01/29/22 10/07/22 Rx sertraline 100 mg tablet 100 mg PO DAILY #90 tabs 01/29/22 10/07/22 Rx atorvastatin 80 mg tablet 80 mg PO DAILY #90 tabs 04/01/22 10/07/22 Rx carvedilol 25 mg tablet 25 mg PO BID #180 tabs 07/06/22 10/07/22 Rx blood sugar diagnostic (OneTouch #200 ea 07/10/22 10/07/22 Rx Ultra Test strips) blood-glucose meter (OneTouch #1 ea 07/10/22 10/07/22 Rx Ultra2 Meter kit) oxycodone-acetaminophen 5 mg-325 1 tab PO TID pain #90 tabs 10/07/22 10/07/22 Rx mg tablet aspirin 81 mg capsule mg 11/25/22 History Allergies Allergy/AdvReac Type Severity Reaction Status Date / Time No Known Drug Allergies Allergy Verified 11/25/22 07:17 Exam Vital Signs (past 8 hours): - 11/25/22 07:30 Temperature 97.1 F L Pulse Rate 60 Respiratory Rate 17 Blood Pressure 200/89 H Pulse Oximetry 96 Oxygen Delivery Method Room Air Oxygen Delivery Method Room Air Narrative Exam Narrative: Oropharynx free of lesions Chest clear to auscultation percussion Cardiac exam reveals no S3 or murmur Assessment & Plan Assessment & Plan narrative: Need for colorectal cancer screening due for colonoscopy. Risks benefits and alternatives being explained Need for screening for esophageal varices. Risks benefits and alternatives been explained.
--- NOTE | 2022-11-25 08:32 | PM.OP.EC ---
Operative Date/Time/Diagnoses Date of procedure: 11/25/22 Pre-op diagnosis: See indication and findings Procedure & Clinicians Study performed: EGD and colonoscopy Indications: Need for colorectal cancer screening and known underlying cirrhosis. Rule out esophageal varices Surgeon: Renu Jefferson Procedure Notes Procedure in detail: After informed consent was obtained patient was placed in left lateral decubitus position. The video upper scope was placed into oropharynx and with the patient's help swelled into the esophagus. The esophagus stomach and duodenum were carefully examined. On withdrawal, retroflexed view the GE junction was performed. The scope was removed. The patient tolerated procedure well. The patient was then turned and the colonoscope substituted. This was introduced in the rectum slowly advanced cecum. Preparation was good. On slow withdrawal mucosa was carefully examined. The scope was removed. The patient tolerated procedure well. Blood loss none Complications none Sedation mac Findings EGD 1. Normal esophagus without esophageal varices. There was a bit of irregularity at the GE junction but nothing that extends above the top of the G folds 2. Normal stomach 3. Normal duodenal bulb and sweep Colon 1. 5 mm rectal polyp cold biopsied and removed completely 2. Otherwise negative colonoscopy to cecum Will be in touch regarding pathology which will help determine follow-up colonoscopy. He should have follow-up EGD in 1 year since he has cirrhosis and continues to imbibe in alcohol
[2022-11-25 09:04] VITALS: BP 111/74; PULSE 64; RESP 13; TEMP 36.3; O2SAT 96
[2022-11-25 09:10] VITALS: BP 148/105; PULSE 63; RESP 21; O2SAT 95
[2022-11-25 09:14] VITALS: BP 162/102; PULSE 62; RESP 15; TEMP 36.6; O2SAT 97
[2022-11-25 09:17] VITALS: BP 168/111; PULSE 65; RESP 19; O2SAT 98
[2022-11-25 09:21] VITALS: BP 157/103
== END 2022-11-25 09:40 | disposition home or self-care (01) ==
PROVIDERS: Family Provider Internal Medicine; PCP Internal Medicine; Referring Provider Internal Medicine Gastroenterology; Visit Provider Internal Medicine Gastroenterology
PROC: 0DJ08ZZ Inspection of Upper Intestinal Tract, Via Natural or Artificial Opening Endoscopic (ICD-10-PCS; CPT 43235; principal; 2022-11-25 08:30)
PROC: 0DJD8ZZ Inspection of Lower Intestinal Tract, Via Natural or Artificial Opening Endoscopic (ICD-10-PCS; CPT 45378; 2022-11-25 08:30)
DX: Z12.11 Encounter for screening for malignant neoplasm of colon (principal); K70.30 Alcoholic cirrhosis of liver without ascites; Z86.010 Personal history of colon polyps; K62.1 Rectal polyp
CPT/HCPCS: 45380; 43235; J2704

== ENCOUNTER → 2023-03-30 09:03 | Outpatient (CLI) | payer OTHER, SELFPAY ==
[2023-03-30 09:45] LABS: Hematocrit 37.5 % (41-53); Hemoglobin 12.2 g/dL (13.5-17.5); Mean Corpuscular HGB Conc 32.6 % (30-36); Mean Corpuscular Hemoglobin 23.8 PG (26-34); Mean Corpuscular Volume 72.8 fL (80-100); Platelet Count 229 X10^3/uL (150-400); Red Blood Cell Count 5.15 X10^6/uL (4.5-5.9); Red Cell Distribution Width 16.6 % (11.6-14.8); White Blood Cell Count 6.3 X10^3/uL (4.5-11.0)
[2023-03-30 10:04] LABS: HEMOLYSIS < 15 (0-50); Iron 38 ug/dL (49-181)
[2023-03-30 10:07] LABS: BUN Creatinine Ratio 25.7 (6-22); Blood Urea Nitrogen 18 mg/dL (9-20); Calcium 10.1 mg/dL (8.4-10.2); Carbon Dioxide 24 mmol/L (22-32); Chloride 100 mmol/L (98-107); Estimated Glomerular Filt Rate > 60 mL/min (>60); Glucose 350 mg/dL (80-110); HEMOLYSIS < 15 (0-50); Potassium 4.8 mmol/L (3.4-5.1); Sodium 136 mmol/L (137-145)
[2023-03-30 10:14] LABS: Percent Iron Saturation 8 % (20-50); Total Iron Binding Capacity 483 ug/dL (261-462); Transferrin 441 mg/dL (206-381)
[2023-03-30 10:40] LABS: Ferritin 10 ng/mL (18-464)
[2023-03-30 12:11] LABS: Creatinine Urine Random 130.7 mg/dL
[2023-03-30 12:15] LABS: Microalbumi Creatinin Ratio Ur 32.1 ug/mg CR (<30); Microalbumin Urine Random 4.2 mg/dL (0-1.6)
== END ==
PROVIDERS: Family Provider Internal Medicine; PCP Internal Medicine; Referring Provider Internal Medicine; Visit Provider Internal Medicine
DX: D50.9 Iron deficiency anemia, unspecified (principal); E11.59 Type 2 diabetes mellitus with other circulatory complications; I10 Essential (primary) hypertension
CPT/HCPCS: 36415; 80048; 82043; 82570; 82728; 83036; 83540; 83550; 85027

== ENCOUNTER → 2023-06-30 11:06 | Outpatient (CLI) | payer OTHER, SELFPAY ==
[2023-06-30 12:30] LABS: Hematocrit 37.7 % (41-53); Hemoglobin 12.1 g/dL (13.5-17.5); Mean Corpuscular HGB Conc 32.2 % (30-36); Mean Corpuscular Hemoglobin 23.8 PG (26-34); Mean Corpuscular Volume 74.1 fL (80-100); Platelet Count 199 X10^3/uL (150-400); Red Blood Cell Count 5.08 X10^6/uL (4.5-5.9); Red Cell Distribution Width 17.5 % (11.6-14.8); White Blood Cell Count 7.2 X10^3/uL (4.5-11.0)
[2023-06-30 12:35] LABS: Hemoglobin A1C% w Est Avg Glu 9.3 % (4.0-6.0)
[2023-06-30 12:38] LABS: BUN Creatinine Ratio 30.3 (6-22); Blood Urea Nitrogen 20 mg/dL (9-20); Calcium 9.6 mg/dL (8.4-10.2); Carbon Dioxide 24 mmol/L (22-32); Chloride 102 mmol/L (98-107); Estimated Glomerular Filt Rate > 60 mL/min (>60); Glucose 303 mg/dL (80-110); HEMOLYSIS < 15 (0-50); Sodium 137 mmol/L (137-145)
[2023-06-30 12:40] LABS: HEMOLYSIS < 15 (0-50); Iron 40 ug/dL (49-181)
[2023-06-30 12:50] LABS: Percent Iron Saturation 7 % (20-50); Total Iron Binding Capacity 540 ug/dL (261-462); Transferrin 501 mg/dL (206-381)
[2023-06-30 13:13] LABS: Ferritin 9 ng/mL (18-464)
== END ==
PROVIDERS: Family Provider Internal Medicine; PCP Internal Medicine; Referring Provider Internal Medicine; Visit Provider Internal Medicine
DX: E11.59 Type 2 diabetes mellitus with other circulatory complications (principal); D50.9 Iron deficiency anemia, unspecified; I10 Essential (primary) hypertension
CPT/HCPCS: 36415; 80048; 82728; 83036; 83540; 83550; 85027; 86900; 86901

== ENCOUNTER → 2023-09-30 13:03 | Outpatient (CLI) | payer OTHER, SELFPAY ==
[2023-09-30 13:43] LABS: Hematocrit 34.7 % (41-53); Hemoglobin 10.9 g/dL (13.5-17.5); Mean Corpuscular HGB Conc 31.3 % (30-36); Mean Corpuscular Hemoglobin 22.6 PG (26-34); Mean Corpuscular Volume 72.1 fL (80-100); Platelet Count 187 X10^3/uL (150-400); Red Blood Cell Count 4.82 X10^6/uL (4.5-5.9); Red Cell Distribution Width 17.8 % (11.6-14.8); White Blood Cell Count 6.5 X10^3/uL (4.5-11.0)
[2023-09-30 14:03] LABS: BUN Creatinine Ratio 27.9 (6-22); Blood Urea Nitrogen 17 mg/dL (9-20); Calcium 9.4 mg/dL (8.4-10.2); Carbon Dioxide 24 mmol/L (22-32); Chloride 102 mmol/L (98-107); Estimated Glomerular Filt Rate > 60 mL/min (>60); Glucose 275 mg/dL (80-110); HEMOLYSIS < 15 (0-50); Potassium 4.6 mmol/L (3.4-5.1); Sodium 135 mmol/L (137-145)
[2023-09-30 14:27] LABS: Hemoglobin A1C% w Est Avg Glu 7.7 % (4.0-6.0)
[2023-09-30 14:40] LABS: Ferritin 7 ng/mL (18-464)
== END ==
PROVIDERS: Family Provider Internal Medicine; PCP Internal Medicine; Referring Provider Internal Medicine; Visit Provider Internal Medicine
DX: E11.59 Type 2 diabetes mellitus with other circulatory complications (principal); D50.9 Iron deficiency anemia, unspecified
CPT/HCPCS: 36415; 80048; 82728; 83036; 85027

== ENCOUNTER → 2024-01-05 14:45 | Outpatient (CLI) | payer OTHER, SELFPAY ==
[2024-01-05 15:03] LABS: Hemoglobin 12.8 g/dL (13.5-17.5); Mean Corpuscular HGB Conc 32.7 % (30-36); Mean Corpuscular Hemoglobin 24.9 PG (26-34); Mean Corpuscular Volume 76.1 fL (80-100); Platelet Count 248 X10^3/uL (150-400); Red Blood Cell Count 5.13 X10^6/uL (4.5-5.9); Red Cell Distribution Width 17.7 % (11.6-14.8); White Blood Cell Count 6.9 X10^3/uL (4.5-11.0)
[2024-01-05 16:19] LABS: Aspartate Aminotransferase 59 IU/L (17-59); BUN Creatinine Ratio 32.3 (6-22); Blood Urea Nitrogen 21 mg/dL (9-20); Calcium 9.8 mg/dL (8.4-10.2); Carbon Dioxide 21 mmol/L (22-32); Chloride 102 mmol/L (98-107); Cholesterol 124 mg/dL (140-199); Estimated Glomerular Filt Rate > 60 mL/min (>60); Glucose 200 mg/dL (80-110); HDL Cholesterol 39 mg/dL (40-60); HEMOLYSIS 27 (0-50); LDL Cholesterol Calculated 20 mg/dL (<100); Potassium 4.4 mmol/L (3.4-5.1); Sodium 135 mmol/L (137-145); Triglycerides 327 mg/dL (35-150)
[2024-01-05 16:29] LABS: Hemoglobin A1C% w Est Avg Glu 7.6 % (4.0-6.0)
[2024-01-05 16:50] LABS: HEMOLYSIS < 15 (0-50); Iron 48 ug/dL (49-181)
[2024-01-05 17:04] LABS: Percent Iron Saturation 10 % (20-50); Total Iron Binding Capacity 461 ug/dL (261-462); Transferrin 385 mg/dL (206-381)
== END ==
PROVIDERS: Family Provider Internal Medicine; PCP Internal Medicine; Referring Provider Internal Medicine; Visit Provider Internal Medicine
DX: E11.59 Type 2 diabetes mellitus with other circulatory complications (principal); D50.9 Iron deficiency anemia, unspecified; E78.2 Mixed hyperlipidemia
CPT/HCPCS: 36415; 80048; 80061; 83036; 83540; 83550; 84450; 85027

== ENCOUNTER → 2024-04-07 09:48 | Outpatient (CLI) | payer OTHER, SELFPAY ==
[2024-04-07 10:05] LABS: Hemoglobin 14.6 g/dL (13.5-17.5); Mean Corpuscular HGB Conc 33.3 % (30-36); Mean Corpuscular Hemoglobin 28.3 PG (26-34); Mean Corpuscular Volume 85.1 fL (80-100); Platelet Count 179 X10^3/uL (150-400); Red Blood Cell Count 5.16 X10^6/uL (4.5-5.9); White Blood Cell Count 5.7 X10^3/uL (4.5-11.0)
[2024-04-07 10:22] LABS: Aspartate Aminotransferase 91 IU/L (17-59); BUN Creatinine Ratio 22.1 (6-22); Blood Urea Nitrogen 19 mg/dL (9-20); Calcium 10.1 mg/dL (8.4-10.2); Carbon Dioxide 22 mmol/L (22-32); Chloride 101 mmol/L (98-107); Cholesterol 164 mg/dL (140-199); Estimated Glomerular Filt Rate > 60 mL/min (>60); Glucose 312 mg/dL (80-110); HDL Cholesterol 66 mg/dL (40-60); HEMOLYSIS < 15 (0-50); Potassium 4.6 mmol/L (3.4-5.1); Sodium 136 mmol/L (137-145); Triglycerides 401 mg/dL (35-150)
[2024-04-07 10:27] LABS: Hemoglobin A1C% w Est Avg Glu 7.8 % (4.0-6.0)
[2024-04-07 10:44] LABS: Creatinine Urine Random 151.97 mg/dL
[2024-04-07 10:49] LABS: Microalbumin Urine Random 13.5 mg/dL (0-1.6)
[2024-04-07 10:55] LABS: Prostate Specific Antigen 4.39 ng/mL (0.10-4.00)
== END ==
PROVIDERS: Family Provider Internal Medicine; PCP Internal Medicine; Referring Provider Internal Medicine; Visit Provider Internal Medicine
DX: D50.9 Iron deficiency anemia, unspecified (principal); E11.59 Type 2 diabetes mellitus with other circulatory complications; N40.1 Benign prostatic hyperplasia with lower urinary tract symptoms; N13.8 Other obstructive and reflux uropathy
CPT/HCPCS: 36415; 80048; 80061; 82043; 82570; 83036; 84153; 84450; 85027

== ENCOUNTER → 2024-08-14 14:10 | Outpatient (CLI) | payer MEDICARE, SELFPAY ==
--- NOTE | 2024-08-14 14:13 | DI.RAD.S_ITS ---
PROCEDURE: XR FOOT RT MIN 3V INDICATIONS: right foot pain, fall TECHNIQUE: 3 views of the foot were acquired. COMPARISON: None. FINDINGS: Subtle irregularity of the right 4th and 5th proximal phalanges mid diaphyses may be related to remote healed fractures however nondisplaced acute fractures could have a similar appearance. Mild nonspecific soft tissue swelling of the midfoot predominantly dorsally. Mild degenerative changes of the tibiotalar, talonavicular, calcaneocuboid, 1st metatarsophalangeal and 1st interphalangeal joints. No radiographic evidence of dislocation or high attenuation soft tissue foreign body. IMPRESSION: Remote healed versus possible acute fractures right 4th and 5th proximal phalanges. Degenerative changes as discussed above. If symptoms persist or worsen, or there is high clinical suspicion of right foot abnormality, CT or MRI could be performed. Dictated by: Cortez Joyce M.D. on 08/14/2024 at 16:53 Approved by: Cortez Joyce M.D. on 08/14/2024 at 16:56
[2024-08-14 15:31] LABS: Hematocrit 47.1 % (41-53); Hemoglobin 16.5 g/dL (13.5-17.5); Mean Corpuscular Hemoglobin 32.8 PG (26-34); Mean Corpuscular Volume 93.8 fL (80-100); Platelet Count 184 X10^3/uL (150-400); Red Blood Cell Count 5.02 X10^6/uL (4.5-5.9); White Blood Cell Count 7.6 X10^3/uL (4.5-11.0)
[2024-08-14 15:40] LABS: Hemoglobin A1C% w Est Avg Glu 7.8 % (4.0-6.0)
[2024-08-14 15:55] LABS: BUN Creatinine Ratio 27.9 (6-22); Blood Urea Nitrogen 19 mg/dL (9-20); Carbon Dioxide 22 mmol/L (22-32); Chloride 98 mmol/L (98-107); Estimated Glomerular Filt Rate > 60 mL/min (>60); Glucose 217 mg/dL (70-99); HEMOLYSIS < 15 (0-50); Potassium 4.7 mmol/L (3.4-5.1); Sodium 135 mmol/L (137-145)
[2024-08-14 16:26] LABS: Prostate Specific Antigen 3.54 ng/mL (0.10-4.00)
== END ==
PROVIDERS: Family Provider Internal Medicine; PCP Internal Medicine; Referring Provider Internal Medicine; Visit Provider Internal Medicine
DX: E11.59 Type 2 diabetes mellitus with other circulatory complications (principal); R97.20 Elevated prostate specific antigen [PSA]; M79.671 Pain in right foot; I25.10 Atherosclerotic heart disease of native coronary artery without angina pectoris; D50.9 Iron deficiency anemia, unspecified
CPT/HCPCS: 36415; 73630; 80048; 83036; 84153; 85027

== ENCOUNTER → 2024-11-15 09:13 | Outpatient (CLI) | payer MEDICARE, SELFPAY ==
[2024-11-15 09:47] LABS: Blood Urea Nitrogen 17 mg/dL (9-20); Calcium 10.0 mg/dL (8.4-10.2); Carbon Dioxide 20 mmol/L (22-32); Chloride 101 mmol/L (98-107); Cholesterol 157 mg/dL (140-199); Estimated Glomerular Filt Rate > 60 mL/min (>60); Glucose 356 mg/dL (70-99); HDL Cholesterol 62 mg/dL (40-60); HEMOLYSIS < 15 (0-50); Potassium 4.7 mmol/L (3.4-5.1); Sodium 136 mmol/L (137-145); Triglycerides 384 mg/dL (35-150)
[2024-11-15 09:54] LABS: Hemoglobin A1C% w Est Avg Glu 8.2 % (4.0-6.0)
[2024-11-15 10:20] LABS: Prostate Specific Antigen 4.06 ng/mL (0.10-4.00)
== END ==
PROVIDERS: Family Provider Internal Medicine; PCP Internal Medicine; Referring Provider Internal Medicine; Visit Provider Internal Medicine
DX: E11.59 Type 2 diabetes mellitus with other circulatory complications (principal); E78.2 Mixed hyperlipidemia; R97.20 Elevated prostate specific antigen [PSA]
CPT/HCPCS: 36415; 80048; 80061; 83036; 84153; 84450

== ENCOUNTER → 2025-02-19 08:17 | Outpatient (CLI) | payer MEDICARE, SELFPAY ==
[2025-02-19 09:05] LABS: Hemoglobin A1C% w Est Avg Glu 6.8 % (4.0-6.0)
[2025-02-19 09:19] LABS: Blood Urea Nitrogen 14 mg/dL (9-20); Calcium 10.0 mg/dL (8.4-10.2); Carbon Dioxide 24 mmol/L (22-32); Chloride 98 mmol/L (98-107); Estimated Glomerular Filt Rate > 60 mL/min (>60); Glucose 176 mg/dL (70-99); HEMOLYSIS < 15 (0-50); Potassium 4.5 mmol/L (3.4-5.1); Sodium 138 mmol/L (137-145)
== END ==
PROVIDERS: PCP Internal Medicine; Referring Provider Internal Medicine; Visit Provider Internal Medicine
DX: E11.59 Type 2 diabetes mellitus with other circulatory complications (principal)
CPT/HCPCS: 36415; 80048; 83036